=== PATIENT | female | born 1985 | race American Indian/Alaskan Native ===

== ENCOUNTER 2016-11-06 05:49 | Emergency (ER) | payer SELFPAY ==
[2016-11-06 06:06] VITALS: BP 108/79
[2016-11-06 06:55] LABS: Basophils % (Auto) 0.4 % (0.0-1.8); Eosinophils % (Auto) 3.8 % (0.0-4.3); Hematocrit 38.9 % (30.3-42.9); Hemoglobin 12.8 gm/dl (10.1-14.3); Mean Corpuscular HGB Conc 33 % (30-34); Mean Corpuscular Hemoglobin 31 pg (28-32); Mean Corpuscular Volume 94 fl (79-97); Platelet Count 257 K/mm3 (140-440); Red Blood Count 4.16 M/mm3 (3.65-5.03); White Blood Count 8.3 K/mm3 (4.5-11.0)
[2016-11-06 07:14] LABS: Bacteria,Urine 1+ /HPF (Negative); Bilirubin,Urine NEG (Negative); Blood,Urine NEG (Negative); Ketones,Urine NEG (Negative); Leukocyte Esterase,Urine SM (Negative); Mucus,Urine FEW /HPF; Nitrite,Urine NEG (Negative); Protein,Urine <15 mg/dL mg/dL (Negative); Urobilinogen,Urine < 2.0 mg/dL (<2.0)
[2016-11-06 07:19] LABS: Alanine Aminotransferase 11 units/L (7-56); Albumin 4.1 g/dL (3.9-5); Albumin/Globulin Ratio 1.6 %; Alkaline Phosphatase 76 units/L (35-129); Anion Gap 15 mmol/L; BUN/Creatinine Ratio 16.25; Bilirubin,Total 0.5 mg/dL (0.1-1.2); Blood Urea Nitrogen 13 mg/dL (7-17); Calcium 8.8 mg/dL (8.4-10.2); Carbon Dioxide 26 mmol/L (22-30); Chloride 98.1 mmol/L (98-107); Glucose 90 mg/dL (65-100); Lipase 26 units/L (13-60); Potassium 4.2 mmol/L (3.6-5.0); Sodium 135 mmol/L (137-145); Total Protein 6.7 g/dL (6.3-8.2)
== END 2016-11-06 06:43 | disposition left against medical advice (07) ==
LOC: ED 05:49
DX: R30.0 Dysuria (principal); R10.9 Unspecified abdominal pain; R30.9 Painful micturition, unspecified; Z53.21 Procedure and treatment not carried out due to patient leaving prior to being seen by health care provider
CPT/HCPCS: 36415; 80053; 81001; 81025; 83690; 85025

== ENCOUNTER 2017-01-21 15:19 | Emergency (ER) | payer MEDICAID | END 2017-01-21 15:20 | disposition left against medical advice (07) | LOC: ED 15:19 | DX: R10.9 Unspecified abdominal pain (principal); Z53.21 Procedure and treatment not carried out due to patient leaving prior to being seen by health care provider ==

== ENCOUNTER 2017-12-10 21:22 | Emergency (ER) | payer MEDICAID ==
[2017-12-10] MEDS ORDERED: PEPCID IV ONE (23:10)
[2017-12-10] MEDS ORDERED: DECADRON IV ONE (23:10)
[2017-12-10] MEDS ORDERED: BENADRYL IV ONE (23:10)
--- NOTE | 2017-12-10 23:15 | Emergency Department Report ---
ED Allergic Reaction HPI - General Chief complaint: Skin Rash Stated complaint: URTICARIA Time Seen by Provider: 12/10/17 23:09 Source: patient, family Mode of arrival: Ambulatory Limitations: No Limitations - History of Present Illness Initial Comments: 32-year-old [place] female presents to the emergency room for complaint of generalized itching for one week. Patient reports that she has several large red bumps that itch. Patient reports that she's been taking Benadryl for the last 2 days. She does admit to changing her soap detergent. She denies any new foods denies any new medications. She denies any shortness of breathing no chest pain no throat swelling or difficulty swallowing no abdominal pain. Patient reports no past medical history currently takes no medications and has no known drug allergies. MD Complaint: allergic reaction, hives -: week(s) (1) Exposure: unknown Symptoms: rash, itching. denies: facial swelling, lip swelling, difficulty swallowing, difficulty breathing, orolingual swelling, dizziness, nausea, vomiting, abdominal pain Severity: moderate Treatment Prior to Arrival: benadryl Previous Allergy History: none - Related Data Previous Rx's Medication Instructions Recorded Last Taken Type Sulfamethoxazole/Trimethoprim 1 each PO Q12H #20 tablet 09/17/15 Unknown Rx [Bactrim DS TAB] metroNIDAZOLE [Flagyl] 500 mg PO Q12HR #14 tab 09/17/15 Unknown Rx traMADol [Ultram 50 MG tab] 50 mg PO Q6HR PRN #20 tablet 09/17/15 Unknown Rx Allergies Allergy/AdvReac Type Severity Reaction Status Date / Time No Known Allergies Allergy Unverified 09/17/15 17:07 ED Review of Systems ROS: Stated complaint: URTICARIA Other details as noted in HPI Constitutional: denies: chills, fever Eyes: denies: eye pain, eye discharge, vision change ENT: denies: ear pain, throat pain Respiratory: denies: cough, shortness of breath, wheezing Cardiovascular: denies: chest pain, palpitations Endocrine: no symptoms reported Gastrointestinal: denies: abdominal pain, nausea, diarrhea Genitourinary: denies: urgency, dysuria, discharge Musculoskeletal: denies: back pain, joint swelling, arthralgia Skin: rash, pruritus. denies: lesions Neurological: denies: headache, weakness, paresthesias Psychiatric: denies: anxiety, depression Hematological/Lymphatic: denies: easy bleeding, easy bruising ED Past Medical Hx - Past Medical History Previous Medical History?: No - Surgical History Additional Surgical History: . D&C - Social History Smoking Status: Never Smoker Substance Use Type: None - Medications Home Medications: Home Medications Medication Instructions Recorded Confirmed Last Taken Type Sulfamethoxazole/Trimethoprim 1 each PO Q12H #20 tablet 09/17/15 Unknown Rx [Bactrim DS TAB] metroNIDAZOLE [Flagyl] 500 mg PO Q12HR #14 tab 09/17/15 Unknown Rx traMADol [Ultram 50 MG tab] 50 mg PO Q6HR PRN #20 tablet 09/17/15 Unknown Rx ED Physical Exam - General Limitations: No Limitations General appearance: alert, in no apparent distress - Head Head exam: Present: atraumatic, normocephalic - Eye Eye exam: Present: normal appearance - ENT ENT exam: Present: mucous membranes moist - Neurological Exam Neurological exam: Present: alert, oriented X3, normal gait - Psychiatric Psychiatric exam: Present: normal affect, normal mood - Skin Skin exam: Present: warm, dry, intact, normal color, rash, urticaria ED Course Vital Signs 12/10/17 12/11/17 22:31 03:09 Temperature 97.8 F Pulse Rate 75 73 Respiratory 18 18 Rate Blood Pressure 113/48 115/57 [Right] O2 Sat by Pulse 100 100 Oximetry - Reevaluation(s) Reevaluation #1: 12/11/17 03:21 Patient reports nurse that she feels much better now and has stopped. ED Medical Decision Making - Medical Decision Making Patient has been evaluated by this provider fast track. I discussed the patient we'll give her IV Benadryl and IV Pepcid and IV dexamethasone. Patient verbalized understanding. Critical care attestation.: If time is entered above; I have spent that time in minutes in the direct care of this critically ill patient, excluding procedure time. ED Disposition Clinical Impression: Allergic reaction, urticaria Disposition: DC-01 TO HOME OR SELFCARE Is pt being admited?: No Does the pt Need Aspirin: No Condition: Stable Instructions: Urticaria (ED) Additional Instructions: Please avoid offending agent. You can take Benadryl as needed for itching. Follow-up with her primary care provider. Referrals: DICRISTINA,DONY, MD [Primary Care Provider] - 3-5 Days [facility] [Provider Group] - 3-5 Days Forms: Work/School Release Form(ED)
[2017-12-11 03:10] VITALS: BP 115/57
== END 2017-12-11 03:47 | disposition home or self-care (01) ==
LOC: ED 21:22
DX: T78.40XA Allergy, unspecified, initial encounter (principal); Y92.89 Other specified places as the place of occurrence of the external cause; L50.9 Urticaria, unspecified
CPT/HCPCS: 96374; 96375; 99282; J1100; J1200

== ENCOUNTER 2017-12-17 20:21 | Emergency (ER) | payer MEDICAID ==
[2017-12-17 22:12] VITALS: BP 105/54
[2017-12-18] MEDS ORDERED: NACL 0.9% 1000 ML 1,000 ML IV ONE (01:53)
[2017-12-18] MEDS ORDERED: BENADRYL IV ONE (01:53)
[2017-12-18] MEDS ORDERED: PEPCID IV ONE (01:53)
== END 2017-12-18 04:50 | disposition other institution (70) ==
LOC: ED 20:21
DX: R21 Rash and other nonspecific skin eruption (principal); Z53.21 Procedure and treatment not carried out due to patient leaving prior to being seen by health care provider

== ENCOUNTER 2018-03-01 15:21 | Emergency (ER) | payer MEDICAID ==
[2018-03-01 15:49] VITALS: BP 108/72
--- NOTE | 2018-03-01 19:06 | Emergency Department Report ---
Upper Respiratory HPI - HPI Chief Complaint: Upper Respiratory Infection Stated Complaint: COLD SYMPTOMS Time Seen by Provider: 03/01/18 17:48 Duration: 3 Days URI Symptoms: Rhinorrhea: Yes, Sore Throat: No, Ear Pain: No, Cough: Yes, Shortness of Breath: No, Sick Contacts: No, Unable to Take Fluids: No, Urine Output Abnormal: No, Listless Behavior: No Other History: This is a 32-year-old female nontoxic, well nourished in appearance, no acute signs of distress presents to the ED with c/o of productive cough, rhinorrhea, nasal congestion x2 days. Patient describes productive cough as yellow mucus production. Patient stated sick contact with daugther. Patient denies any recent travels, long car, recent hospital stays. Patient denies any calf pain or calf tenderness. Patient denies any chest pain , short of breath, fever, chills, nausea, vomiting, hemoptysis, numbness, tingling, headache or stiff neck. Patient denies any allergies or PMH. - Home Meds and Allergies Home Medications: Previous Rx's Medication Instructions Recorded Last Taken Type Sulfamethoxazole/Trimethoprim 1 each PO Q12H #20 tablet 09/17/15 Unknown Rx [Bactrim DS TAB] metroNIDAZOLE [Flagyl] 500 mg PO Q12HR #14 tab 09/17/15 Unknown Rx traMADol [Ultram 50 MG tab] 50 mg PO Q6HR PRN #20 tablet 09/17/15 Unknown Rx Azithromycin [Zithromax Z-TERRI] 250 mg PO DAILY #6 tablet 03/01/18 Unknown Rx Benzonatate [Tessalon Perle] 100 mg PO Q8H PRN 20 Days capsule 03/01/18 Unknown Rx Prednisone [predniSONE 10 mg 10 mg PO .TAPER #1 tab.ds.pk 03/01/18 Unknown Rx (6-Day Pack, 21 Tabs)] Allergies/Adverse Reactions: Allergies Allergy/AdvReac Type Severity Reaction Status Date / Time No Known Allergies Allergy Unverified 09/17/15 17:07 ED Review of Systems ROS: Stated complaint: COLD SYMPTOMS Other details as noted in HPI Constitutional: denies: chills, fever Eyes: denies: eye pain, eye discharge, vision change ENT: denies: ear pain, throat pain Respiratory: cough. denies: shortness of breath, wheezing Cardiovascular: denies: chest pain, palpitations Endocrine: no symptoms reported Gastrointestinal: denies: abdominal pain, nausea, diarrhea Genitourinary: denies: urgency, dysuria, discharge Musculoskeletal: denies: back pain, joint swelling, arthralgia Skin: denies: rash, lesions Neurological: denies: headache, weakness, paresthesias Psychiatric: denies: anxiety, depression Hematological/Lymphatic: denies: easy bleeding, easy bruising ED Past Medical Hx - Past Medical History Previous Medical History?: Yes - Surgical History Past Surgical History?: Yes Additional Surgical History: c-sectionx3. D&C. x1, 11/26/2017 - Social History Smoking Status: Former Smoker Substance Use Type: Alcohol, Other - Medications Home Medications: Home Medications Medication Instructions Recorded Confirmed Last Taken Type Sulfamethoxazole/Trimethoprim 1 each PO Q12H #20 tablet 09/17/15 Unknown Rx [Bactrim DS TAB] metroNIDAZOLE [Flagyl] 500 mg PO Q12HR #14 tab 09/17/15 Unknown Rx traMADol [Ultram 50 MG tab] 50 mg PO Q6HR PRN #20 tablet 09/17/15 Unknown Rx Azithromycin [Zithromax Z-TERRI] 250 mg PO DAILY #6 tablet 03/01/18 Unknown Rx Benzonatate [Tessalon Perle] 100 mg PO Q8H PRN 20 Days capsule 03/01/18 Unknown Rx Prednisone [predniSONE 10 mg 10 mg PO .TAPER #1 tab.ds.pk 03/01/18 Unknown Rx (6-Day Pack, 21 Tabs)] ED Bronchiolitis Physical Exam - Exam General: Vital signs noted. No distress. Alert and acting appropriately. HEENT: No Pharyngeal Erythema, No Conjuctival Injection, No Dry Mucous Membranes , No Rhinorrhea Ear: Neither TM Bulge, Neither TM Erythema, Neither EAC Discharge Neck: No Adenopathy, No Rigidity Lungs: Yes Clear Lung Sounds, Yes Good Air Exchange, No Wheezes, No Stridor, No Cough, No Nasal Flaring, No Retractions, No Use of Accessory Muscles Heart: Yes Regular, No Murmur Abdomen: Yes Normal Bowel Sounds, No Tenderness, No Peritoneal Signs Skin: No Rash, No Eczema Neurologic: Alert and oriented, no deficits. Musculoskeletal: Unremarkable. ED Bronchiolitis Tests - Testing Testing: CXR: Normal/Negative ED Physical Exam - General Limitations: No Limitations General appearance: alert, in no apparent distress - Head Head exam: Present: atraumatic, normocephalic - Eye Eye exam: Present: normal appearance Pupils: Present: normal accommodation - ENT ENT exam: Present: normal exam, normal orophraynx, mucous membranes moist, TM's normal bilaterally, normal external ear exam - Neck Neck exam: Present: normal inspection, full ROM. Absent: tenderness, meningismus, lymphadenopathy - Respiratory Respiratory exam: Present: normal lung sounds bilaterally. Absent: respiratory distress, wheezes, rales, rhonchi, stridor, chest wall tenderness, accessory muscle use, decreased breath sounds, prolonged expiratory - Cardiovascular Cardiovascular Exam: Present: regular rate, normal rhythm, normal heart sounds. Absent: irregular rhythm, systolic murmur, diastolic murmur, rubs, gallop - GI/Abdominal GI/Abdominal exam: Present: soft, normal bowel sounds - Extremities Exam Extremities exam: Present: normal inspection, full ROM, normal capillary refill - Back Exam Back exam: Present: normal inspection, full ROM - Neurological Exam Neurological exam: Present: alert, oriented X3, normal gait - Psychiatric Psychiatric exam: Present: normal affect, normal mood - Skin Skin exam: Present: warm, dry, intact, normal color. Absent: rash ED Course Vital Signs 03/01/18 15:44 Temperature 98.6 F Pulse Rate 105 H Respiratory 20 Rate Blood Pressure 108/72 O2 Sat by Pulse 96 Oximetry - Reevaluation(s) Reevaluation #1: 03/01/18 19:03 Patient is speaking in full sentences with no signs of distress noted. ED Medical Decision Making - Medical Decision Making This is a 32-year-old female that presents with bronchitis. Patient is stable and was examined by me. Chest x-ray has been obtained and dictated by radiologist with normal exam. Patient is notified of x-ray results with no questions noted. Due to patient having symptoms of bronchitis and worsening I will treat patient empirically with zpak. Patient was instructed to increase hydration, rest and take Motrin for fever episodes. Vitals stable. Patient is nonfebrile and normal heart rate. Patient was instructed Follow-up with a primary care doctor in 3-5 days or if symptoms worsen and continue return to emergency room as soon as possible. At time time of discharge, the patient does not seem toxic or ill in appearance. No acute signs of distress noted. Patient agrees to discharge treatment plan of care. No further questions noted by the patient. Critical care attestation.: If time is entered above; I have spent that time in minutes in the direct care of this critically ill patient, excluding procedure time. ED Disposition Clinical Impression: Acute bronchitis Qualifiers: Bronchitis organism: unspecified organism Qualified Code(s): J20.9 - Acute bronchitis, unspecified Disposition: - TO HOME OR SELFCARE Is pt being admited?: No Does the pt Need Aspirin: No Condition: Stable Instructions: Acute Bronchitis (ED), Azithromycin (By mouth) Additional Instructions: Follow-up with a primary care doctor in 3-5 days or if symptoms worsen and continue return to emergency room as soon as possible. Prescriptions: Azithromycin [Zithromax Z-TERRI] 250 mg PO DAILY #6 tablet Benzonatate [Tessalon Perle] 100 mg PO Q8H PRN 20 Days capsule PRN Reason: Cough Prednisone [predniSONE 10 mg (6-Day Pack, 21 Tabs)] 10 mg PO .TAPER #1 tab.ds.pk Referrals: PRIMARY CAREMD [Primary Care Provider] - 3-5 Days STEPHANIE RUIZ MD [Staff Physician] - 3-[address] [facility] [Outside] - 3-5 Days [facility] [Outside] - 3-5 Days Forms: Work/School Release Form(ED)
--- NOTE | 2018-03-01 19:25 | XRay Report ---
FINAL REPORT PROCEDURE: XR CHEST ROUTINE 2V TECHNIQUE: PA and lateral chest radiographs were obtained. CPT 40900 HISTORY: Cough. COMPARISON: No prior studies are available for comparison. FINDINGS: Heart: Normal. Mediastinum/Vessels: Normal. Lungs/Pleural space: Normal. Bony thorax: No acute osseous abnormality. Other: IMPRESSION: No radiographic evidence of acute cardiopulmonary disease.
== END 2018-03-01 19:35 | disposition home or self-care (01) ==
LOC: ED 15:21
DX: J20.9 Acute bronchitis, unspecified (principal); Z87.891 Personal history of nicotine dependence
CPT/HCPCS: 71046; 99283

== ENCOUNTER 2018-07-14 18:49 | Emergency (ER) | payer MEDICAID ==
[2018-07-14 19:56] LABS: HCG Qualitative,Urine Negative (Negative)
[2018-07-14 20:00] LABS: Bilirubin,Urine NEG (Negative); Blood,Urine NEG (Negative); Color,Urine Straw (Yellow); Protein,Urine <15 mg/dL mg/dL (Negative); Urobilinogen,Urine < 2.0 mg/dL (<2.0)
--- NOTE | 2018-07-14 21:31 | Emergency Department Report ---
ED Female HPI - General Chief complaint: Urogenital-Female Stated complaint: POSS UTI Time Seen by Provider: 07/14/18 21:29 Source: patient Mode of arrival: Ambulatory Limitations: No Limitations - History of Present Illness Initial comments: This is a 33-year-old female nontoxic, well nourished in appearance, no acute signs of distress presents to the ED with c/o of vaginal discharge and pelvic pain. Patient denies any vaginal pain or swelling. Patient denies any vaginal ulcers or lesions. Patient denies any nausea, vomiting, chest pain, shortness of breathe, fever, chills, headache, back pain, numbness, tingling, stiff neck. Patient denies any radiation of pain. Patient describes vaginal discharge at white and thick with foul odor. Patient stated is she not concerned about STD but wants to be tested without empirical treatment. Patient denies any urinary symptoms. Patient denies any allergies or PMH. MD Complaint: vaginal discharge, pelvic pain Radiation: non-radiating Severity: mild Severity scale (0 -10): 3 Quality: cramping Consistency: constant Improves with: none Worsens with: none Are you Now?: No Associated Symptoms: vaginal discharge. denies: vaginal bleeding, abdominal pain, nausea/vomiting, fever/chills, headaches, loss of appetite, dysuria, hematuria, rash, seizure, shortness of breath, syncope, weakness - Related Data Previous Rx's Medication Instructions Recorded Last Taken Type Sulfamethoxazole/Trimethoprim 1 each PO Q12H #20 tablet 09/17/15 Unknown Rx [Bactrim DS TAB] metroNIDAZOLE [Flagyl] 500 mg PO Q12HR #14 tab 09/17/15 Unknown Rx traMADol [Ultram 50 MG tab] 50 mg PO Q6HR PRN #20 tablet 09/17/15 Unknown Rx Azithromycin [Zithromax Z-TERRI] 250 mg PO DAILY #6 tablet 03/01/18 Unknown Rx Benzonatate [Tessalon Perle] 100 mg PO Q8H PRN 20 Days capsule 03/01/18 Unknown Rx Prednisone [predniSONE 10 mg 10 mg PO .TAPER #1 tab.ds.pk 03/01/18 Unknown Rx (6-Day Pack, 21 Tabs)] metroNIDAZOLE [Flagyl] 500 mg PO Q12HR #14 tab 07/15/18 Unknown Rx Allergies Allergy/AdvReac Type Severity Reaction Status Date / Time No Known Allergies Allergy Verified 07/14/18 18:55 ED Review of Systems ROS: Stated complaint: POSS UTI Other details as noted in HPI Constitutional: denies: chills, fever Eyes: denies: eye pain, eye discharge, vision change ENT: denies: ear pain, throat pain Respiratory: denies: cough, shortness of breath, wheezing Cardiovascular: denies: chest pain, palpitations Endocrine: no symptoms reported Gastrointestinal: denies: abdominal pain, nausea, diarrhea Genitourinary: discharge. denies: urgency, dysuria Musculoskeletal: denies: back pain, joint swelling, arthralgia Skin: denies: rash, lesions Neurological: denies: headache, weakness, paresthesias Psychiatric: denies: anxiety, depression Hematological/Lymphatic: denies: easy bleeding, easy bruising ED Past Medical Hx - Past Medical History Previous Medical History?: No - Surgical History Additional Surgical History: c-sectionx3. D&C. x1, 11/26/2017 - Social History Smoking Status: Never Smoker Substance Use Type: None - Medications Home Medications: Home Medications Medication Instructions Recorded Confirmed Last Taken Type Sulfamethoxazole/Trimethoprim 1 each PO Q12H #20 tablet 09/17/15 Unknown Rx [Bactrim DS TAB] metroNIDAZOLE [Flagyl] 500 mg PO Q12HR #14 tab 09/17/15 Unknown Rx traMADol [Ultram 50 MG tab] 50 mg PO Q6HR PRN #20 tablet 09/17/15 Unknown Rx Azithromycin [Zithromax Z-TERRI] 250 mg PO DAILY #6 tablet 03/01/18 Unknown Rx Benzonatate [Tessalon Perle] 100 mg PO Q8H PRN 20 Days capsule 03/01/18 Unknown Rx Prednisone [predniSONE 10 mg 10 mg PO .TAPER #1 tab.ds.pk 03/01/18 Unknown Rx (6-Day Pack, 21 Tabs)] metroNIDAZOLE [Flagyl] 500 mg PO Q12HR #14 tab 07/15/18 Unknown Rx ED Physical Exam - General Limitations: No Limitations General appearance: alert, in no apparent distress - Head Head exam: Present: atraumatic, normocephalic - Eye Eye exam: Present: normal appearance Pupils: Present: normal accommodation - ENT ENT exam: Present: normal exam, mucous membranes moist - Neck Neck exam: Present: normal inspection, full ROM. Absent: tenderness, meningismus, lymphadenopathy - Respiratory Respiratory exam: Present: normal lung sounds bilaterally. Absent: respiratory distress, wheezes, rales - Cardiovascular Cardiovascular Exam: Present: regular rate, normal rhythm, normal heart sounds. Absent: bradycardia, tachycardia, irregular rhythm, systolic murmur, diastolic murmur, rubs, gallop - GI/Abdominal GI/Abdominal exam: Present: soft, normal bowel sounds. Absent: distended, tenderness, guarding, rebound, rigid, diminished bowel sounds - Expanded GI/Abdominal Exam Expanded GI/Abdominal exam: Absent: psoas sign, Banks's sign, Rovsing's sign, tenderness at [place]bur[place]'s Point, ascites - Rectal Rectal exam: Present: deferred - External exam: Present: normal external exam, other (anchorer Mommy Nearest present on exam). Absent: erythema, swelling, lesions, lacerations, ecchymosis , bleeding Speculum exam: Present: cervical discharge, other (anchorer Mommy Nearest present on exam). Absent: erythema, vaginal discharge, vaginal bleeding, foreign body, tissue, laceration Bi-manual exam: Present: normal bi-manual exam, other (anchorer Mommy Nearest present on exam). Absent: cervical motion tendernes, adnexal tenderness, adnexal mass, uterine enlargement, uterine tenderness - Extremities Exam Extremities exam: Present: normal inspection, full ROM - Back Exam Back exam: Present: normal inspection, full ROM. Absent: tenderness, CVA tenderness (R), CVA tenderness (L), muscle spasm, paraspinal tenderness, vertebral tenderness, rash noted - Neurological Exam Neurological exam: Present: alert, oriented X3 - Psychiatric Psychiatric exam: Present: normal affect, normal mood - Skin Skin exam: Present: warm, dry, intact, normal color. Absent: rash ED Course Vital Signs 07/14/18 07/14/18 18:55 23:23 Temperature 98.5 F 97.8 F Pulse Rate 70 66 Respiratory 18 16 Rate Blood Pressure 122/64 Blood Pressure 143/90 [Left] O2 Sat by Pulse 100 98 Oximetry - Reevaluation(s) Reevaluation #1: 07/14/18 23:33 Patient is speaking in full sentences with no signs of distress noted. ED Medical Decision Making - Lab Data Result diagrams: 07/14/18 21:42 07/14/18 21:42 - Medical Decision Making This is a 33-year-old female that presents with pelvic pain and vaginal discharge. Patient is stable was examined by me. There is no abdominal tenderness. No pelvic pain. UA obtained. Wet prep obtained with some clue cells. Gonorrhea chlamydia swab pending. Patient refused empirical treatment of STD as she stated she is not concerned about STD but does want to be. Patient was instructed to return in 2 days for GC results. Patient was instructed to Follow-up with a primary care doctor in 3-5 days or if symptoms worsen and continue return to emergency room as soon as possible. At time of discharge, the patient does not seem toxic or ill in appearance. No acute signs of distress noted. Patient agrees to discharge treatment plan of care. No further questions noted by the patient. Critical care attestation.: If time is entered above; I have spent that time in minutes in the direct care of this critically ill patient, excluding procedure time. ED Disposition Clinical Impression: Pelvic pain, Vaginal discharge, BV (bacterial vaginosis) Disposition: - TO HOME OR SELFCARE Is pt being admited?: No Does the pt Need Aspirin: No Condition: Stable Instructions: Bacterial Vaginosis (ED), Metronidazole (By mouth) Additional Instructions: Follow-up with a primary care/[facility] doctor in 3-5 days or if symptoms worsen and continue return to emergency room as soon as possible. Prescriptions: metroNIDAZOLE [Flagyl] 500 mg PO Q12HR #14 tab Referrals: PRIMARY CAREMD [Primary Care Provider] - 3-5 Days STEPHANIE RUIZ MD [Staff Physician] - 3-5 Days PASTOR KEARNEY MD [Staff Physician] - 3-5 Days Forms: Work/School Release Form(ED)
[2018-07-14 21:54] LABS: Basophils % (Auto) 0.4 % (0.0-1.8); Eosinophils # (Auto) 0.6 K/mm3 (0.0-0.4); Eosinophils % (Auto) 6.7 % (0.0-4.3); Hematocrit 34.8 % (30.3-42.9); Hemoglobin 11.6 gm/dl (10.1-14.3); Lymphocytes # (Auto) 3.3 K/mm3 (1.2-5.4); Lymphocytes % (Auto) 34.5 % (13.4-35.0); Mean Corpuscular HGB Conc 33 % (30-34); Mean Corpuscular Hemoglobin 32 pg (28-32); Mean Corpuscular Volume 95 fl (79-97); Monocytes # (Auto) 0.5 K/mm3 (0.0-0.8); Monocytes % (Auto) 4.8 % (0.0-7.3); Platelet Count 316 K/mm3 (140-440); Red Blood Count 3.68 M/mm3 (3.65-5.03); Red Cell Distribution Width 14.2 % (13.2-15.2)
[2018-07-14 22:07] LABS: BUN/Creatinine Ratio 15; Blood Urea Nitrogen 15 mg/dL (7-17); Calcium 9.5 mg/dL (8.4-10.2); Hemolysis Index 10
--- NOTE | 2018-07-14 23:18 | Ultrasound Report ---
FINAL REPORT EXAM: US TRANSVAGINAL HISTORY: pelvic pain TECHNIQUE: Transvaginal grayscale, color flow and Doppler waveform imaging of the pelvis was performed. Comparison: Transabdominal ultrasound also performed today and ultrasound pelvis dated November 18, 2014 FINDINGS: The uterus measures 8.3 centimeters x 3.5 centimeters x 5.7 centimeters. An intrauterine device is demonstrated in the uterus. Endometrial thickness measures 3.6 millimeters. The right ovary measures 2.3 centimeters x 2.8 centimeters x 2.4 centimeters. There is an approximately 1.8 centimeter dominant follicle in the right ovary. The left ovary measures 2.8 centimeters x 2.2 centimeters x 2.1 centimeters. There is an approximately 1 centimeter dominant follicle in the left ovary. Arterial and venous flow is demonstrated in both ovaries utilizing color flow and Doppler waveform imaging. No free fluid is demonstrated in the pelvis. IMPRESSION: 1. Ultrasound pelvis within normal limits. 2. Intrauterine device is demonstrated in the uterus.
--- NOTE | 2018-07-14 23:21 | Ultrasound Report ---
FINAL REPORT EXAM: US PELVIS DUPLEX DOPPLER COMP HISTORY: pelvic pain TECHNIQUE: Transabdominal grayscale, color flow and Doppler waveform imaging of the pelvis was performed. Comparison: Transvaginal ultrasound also performed today FINDINGS: The uterus measures 8.3 centimeters x 3.5 centimeters x 5.7 centimeters. An intrauterine device is demonstrated within the uterus. The right ovary measures 3 centimeters x 2.1 centimeters x 2.2 centimeters and contains an approximately 2 centimeter dominant follicle. The left ovary measures 3.1 centimeters x 2 centimeters x 2 centimeters and contains an approximately 2.4 centimeter dominant follicle. Arterial and venous flow is demonstrated in both ovaries utilizing color flow Doppler waveform imaging. No free fluid is demonstrated in the pelvis. IMPRESSION: 1. Ultrasound pelvis within normal limits. 2. Intrauterine device within the uterus. Please see report of transvaginal study also performed today.
[2018-07-14 23:23] VITALS: BP 143/90
== END 2018-07-15 00:29 | disposition home or self-care (01) ==
LOC: ED 18:49
DX: N76.0 Acute vaginitis (principal); R10.2 Pelvic and perineal pain
CPT/HCPCS: 36415; 76830; 80048; 81001; 81025; 85025; 87210; 87591; 93975; 99284

== ENCOUNTER 2018-10-09 10:43 | Inpatient (IN) | payer MEDICAID, OTHER ==
[2018-10-09 11:22] LABS: Bilirubin,Urine NEG (Negative); Blood,Urine NEG (Negative); Color,Urine Yellow (Yellow); Protein,Urine <15 mg/dL mg/dL (Negative); Urobilinogen,Urine < 2.0 mg/dL (<2.0)
[2018-10-09 11:28] LABS: HCG Qualitative,Urine Negative (Negative)
[2018-10-09] MEDS ORDERED: NORCO 5/325 PO ONE (11:28)
[2018-10-09] MEDS ORDERED: IBUPROFEN PO ONE (11:28)
--- NOTE | 2018-10-09 11:33 | Emergency Department Report ---
HPI - General Chief Complaint: Urogenital-Female Time Seen by Provider: 10/09/18 11:21 - HPI HPI: Room 7 The patient is a 33-year-old female presenting with a chief complaint of left flank pain and right wrist pain. The patient states since yesterday she has had pain in the left flank only when she moves 2 days. Patient denies nausea/vomiting, dysuria or hematuria. Patient denies vaginal discharge. Patient states her LMP was early August but 2 days ago she had light spotting for one day. Patient states she has an IUD in place. The patient also states she's had pain in her right wrist for 1 month after lifting a heavy object Location: Left flank Duration: [See above] Quality: Pain Severity: Moderate Modifying factors: [see above] Context: [see above] Mode of transportation: [not driving] ED Past Medical Hx - Past Medical History Previous Medical History?: No - Surgical History Past Surgical History?: No Additional Surgical History: c-sectionx3. D&C. x1, 11/26/2017 - Family History Family history: no significant - Social History Smoking Status: Never Smoker Substance Use Type: None - Medications Home Medications: Home Medications Medication Instructions Recorded Confirmed Last Taken Type Sulfamethoxazole/Trimethoprim 1 each PO Q12H #20 tablet 09/17/15 Unknown Rx [Bactrim DS TAB] metroNIDAZOLE [Flagyl] 500 mg PO Q12HR #14 tab 09/17/15 Unknown Rx traMADol [Ultram 50 MG tab] 50 mg PO Q6HR PRN #20 tablet 09/17/15 Unknown Rx Azithromycin [Zithromax Z-TERRI] 250 mg PO DAILY #6 tablet 03/01/18 Unknown Rx Benzonatate [Tessalon Perle] 100 mg PO Q8H PRN 20 Days capsule 03/01/18 Unknown Rx Prednisone [predniSONE 10 mg 10 mg PO .TAPER #1 tab.ds.pk 03/01/18 Unknown Rx (6-Day Pack, 21 Tabs)] metroNIDAZOLE [Flagyl] 500 mg PO Q12HR #14 tab 07/15/18 Unknown Rx ED Review of Systems ROS: Stated complaint: FLANK PAIN/RIGHT WRIST PAIN Other details as noted in HPI Constitutional: no symptoms reported Eyes: denies: eye pain ENT: as per HPI Respiratory: no symptoms reported Cardiovascular: denies: chest pain Endocrine: no symptoms reported Gastrointestinal: abdominal pain. denies: nausea, vomiting Genitourinary: abnormal menses. denies: dysuria, hematuria, discharge Musculoskeletal: back pain Neurological: denies: headache Physical Exam - Physical Exam Vital Signs: Vital Signs 10/09/18 10:50 Temperature 98.2 F Pulse Rate 71 Respiratory 16 Rate Blood Pressure 112/77 O2 Sat by Pulse 98 Oximetry Physical Exam: GENERAL: The patient is well-developed well-nourished female lying on stretcher not appearing to be in acute distress. [] HEENT: Normocephalic. Atraumatic. Extraocular motions are intact. Patient has moist mucous membranes. NECK: Supple. Trachea midline CHEST/LUNGS: Clear to auscultation. There is no respiratory distress noted. HEART/CARDIOVASCULAR: Regular. There is no tachycardia. There is no gallop rub or murmur. ABDOMEN: Abdomen is soft, with mild discomfort to palpation left lower quadrant and left upper quadrant. Patient has normal bowel sounds. There is no abdominal distention. SKIN: There is no rash. There is no edema. There is no diaphoresis. NEURO: The patient is awake, alert, and oriented. The patient is cooperative. The patient has normal speech MUSCULOSKELETAL: There is left CVA tenderness. There is no evidence of acute i njury. ED Course Vital Signs 10/09/18 10:50 Temperature 98.2 F Pulse Rate 71 Respiratory 16 Rate Blood Pressure 112/77 O2 Sat by Pulse 98 Oximetry - Consultations Consultation #1: 10/09/18 15:27 Nephrology paged 10/09/18 15:[address] Jack-recommends patient be admitted to the hospital for further evaluation. Consider MRA to rule out renal artery stenosis ED Medical Decision Making - Lab Data Result diagrams: 10/09/18 11:58 10/09/18 11:58 Laboratory Tests 10/09/18 10/09/18 10/09/18 11:02 11:58 11:58 WBC 5.9 RBC 4.19 Hgb 13.3 Hct 39.7 MCV 95 MCH 32 MCHC 34 RDW 14.0 Plt Count 277 Lymph % (Auto) 39.6 H [place] % (Auto) 5.9 Eos % (Auto) 10.2 H Baso % (Auto) 0.5 Lymph # 2.3 [place] # 0.4 Eos # 0.6 H Baso # 0.0 Seg Neutrophils % 43.8 Seg Neutrophils # 2.6 Sodium 137 Potassium 4.2 Chloride 101.5 Carbon Dioxide 24 Anion Gap 16 BUN 14 Creatinine 0.9 Estimated GFR > 60 BUN/Creatinine Ratio 16 Glucose 94 Calcium 8.9 Total Bilirubin 0.40 AST 18 ALT 11 Alkaline Phosphatase 64 Total Protein 7.1 Albumin 4.1 Albumin/Globulin Ratio 1.4 Urine Color Yellow Urine Turbidity Clear Urine pH 7.0 Ur Specific [place] 1.015 Urine Protein <15 mg/dl Urine Glucose (UA) Neg Urine Ketones Neg Urine Blood Neg Urine Nitrite Neg Urine Bilirubin Neg Urine Urobilinogen < 2.0 Ur Leukocyte Esterase Neg Urine WBC (Auto) 7.0 H Urine RBC (Auto) 1.0 U Epithel Cells (Auto) < 1.0 Urine HCG, Qual Negative - Radiology Data Radiology results: report reviewed (right wrist x-ray, CT abdomen and pelvis), image reviewed (right wrist x-ray, CT abdomen and pelvis) interpreted by me: Right wrist x-ray-no acute fracture [address] [address] XRay Report Signed Patient: PK SEGAL MR#: [id number] : 1985 Acct:[id number] Age/Sex: 33 / F ADM Date: 10/09/18 Loc: ED Attending Dr: Ordering Physician: YULISA MONTANO MD Date of Service: 10/09/18 Procedure(s): XR wrist 3+V RT Accession Number(s): [id number] cc: YULISA MONTANO MD Fluoro Time In Minutes: FINAL REPORT EXAM: XR WRIST 2V RT HISTORY: pain after lifting heavy object TECHNIQUE: Three views of the right wrist PRIORS: None. FINDINGS: There is no evidence of acute fracture. There is no evidence of joint dislocation. There is no significant focal osseous lesions seen. IMPRESSION: There is no acute abnormality identified. Transcribed By: DARRYL Dictated By: PASTOR ZAVALA MD Electronically Authenticated By: PASTOR ZAVALA MD Signed Date/Time: 10/09/18 1310 DD/ 131 TD/TT: 10/09/[address] [address] Cat Scan Report Signed Patient: PK SEGAL MR#: [id number] : 1985 Acct:[id number] Age/Sex: 33 / F ADM Date: 10/09/18 Loc: ED Attending Dr: Ordering Physician: YULISA MONTANO MD Date of Service: 10/09/18 Procedure(s): CT abdomen pelvis wo/w con Accession Number(s): [id number] cc: YUILSA MONTANO MD FINAL REPORT EXAM: CT ABDOMEN PELVIS WO/W CON HISTORY: left flank pain TECHNIQUE: CT of the abdomen and pelvis performed. Images were obtained before and after IV contrast. No oral contrast was administered. PRIORS: None. FINDINGS: There are no renal stones, ureteral stones, hydronephrosis, or evidence of obstructive uropathy. There is a small right renal cyst. The left kidney is scarred and mildly atrophic. There is a upper medial peripheral area of diminished enhancement involving the left kidney. I am not certain whether this represents focal pyelonephritis or a small renal infarct. Correlate clinically. The visualized liver, spleen, pancreas, adrenal glands and right kidney demonstrate no significant abnormalities. There is no abdominal aortic aneurysm. There is no evidence of intestinal obstruction. The appendix is not specifically identified. There is no free intraperitoneal air. There are no abnormal fluid collections seen. The bladder is unremarkable. There is an IUD in the uterus. There is no abnormal pelvic mass or fluid collections seen. IMPRESSION: Focal peripheral area of diminished enhancement involving upper medial left kidney. This could be focal pyelonephritis versus is a renal infarct. Correlate clinically. Transcribed By: DARRYL Dictated By: PASTOR ZAVALA MD Electronically Authenticated By: PASTOR ZAVALA MD Signed Date/Time: 10/09/18 1522 DD/ 1524 TD/TT: 10/09/18 1524 - Differential Diagnosis pyelonephritis, ectopic , ovarian cyst, Critical care attestation.: If time is entered above; I have spent that time in minutes in the direct care of this critically ill patient, excluding procedure time. ED Disposition Clinical Impression: Left flank pain, Strain of right wrist, Pyuria Disposition: OP ADMIT IP TO THIS HOSP Is pt being admited?: Yes Does the pt Need Aspirin: Yes Condition: Fair Referrals: PRIMARY CARE, [Primary Care Provider] - 3-5 Days Time of Disposition: 15:57 (hospitalist paged (Dr Andres))
[2018-10-09 12:22] LABS: Basophils % (Auto) 0.5 % (0.0-1.8); Eosinophils # (Auto) 0.6 K/mm3 (0.0-0.4); Eosinophils % (Auto) 10.2 % (0.0-4.3); Hematocrit 39.7 % (30.3-42.9); Hemoglobin 13.3 gm/dl (10.1-14.3); Lymphocytes # (Auto) 2.3 K/mm3 (1.2-5.4); Lymphocytes % (Auto) 39.6 % (13.4-35.0); Mean Corpuscular HGB Conc 34 % (30-34); Mean Corpuscular Volume 95 fl (79-97); Monocytes # (Auto) 0.4 K/mm3 (0.0-0.8); Monocytes % (Auto) 5.9 % (0.0-7.3); Platelet Count 277 K/mm3 (140-440); Red Blood Count 4.19 M/mm3 (3.65-5.03)
[2018-10-09 12:47] LABS: Alanine Aminotransferase 11 units/L (7-56); Albumin 4.1 g/dL (3.9-5); BUN/Creatinine Ratio 16; Blood Urea Nitrogen 14 mg/dL (7-17); Calcium 8.9 mg/dL (8.4-10.2); Hemolysis Index 17
--- NOTE | 2018-10-09 13:10 | XRay Report ---
FINAL REPORT EXAM: XR WRIST 2V RT HISTORY: pain after lifting heavy object TECHNIQUE: Three views of the right wrist PRIORS: None. FINDINGS: There is no evidence of acute fracture. There is no evidence of joint dislocation. There is no significant focal osseous lesions seen. IMPRESSION: There is no acute abnormality identified.
--- NOTE | 2018-10-09 15:22 | Cat Scan Report ---
FINAL REPORT EXAM: CT ABDOMEN PELVIS WO/W CON HISTORY: left flank pain TECHNIQUE: CT of the abdomen and pelvis performed. Images were obtained before and after IV contrast . No oral contrast was administered. PRIORS: None. FINDINGS: There are no renal stones, ureteral stones, hydronephrosis, or evidence of obstructive uropathy. There is a small right renal cyst. The left kidney is scarred and mildly atrophic. There is a upper m edial peripheral area of diminished enhancement involving the left kidney. I am not certain whether t his represents focal pyelonephritis or a small renal infarct. Correlate clinically. The visualized liver, spleen, pancreas, adrenal glands and right kidney demonstrate no significant ab normalities. There is no abdominal aortic aneurysm. There is no evidence of intestinal obstruction. The appendix is not specifically identified. There is no free intraperitoneal air. There are no abnormal fluid collections seen. The bladder is unremarkable. There is an IUD in the uterus. There is no abnormal pelvic mass or fluid collections seen. IMPRESSION: Focal peripheral area of diminished enhancement involving upper medial left kidney. This could be foc al pyelonephritis versus is a renal infarct. Correlate clinically.
[2018-10-09] MEDS ORDERED: LEVAQUIN PO ONE (15:55)
--- NOTE | 2018-10-09 16:00 | History and Physical Report ---
History of Present Illness History of present illness: 33 YO Female with no PMH presents to ED for evaluation. Pt states that she has experienced Left flank pain over the past 2 days with worsening symptoms over the past 1 day. Pt acknowledges recurrent urinary tract infections, but denies fever, chills, NVD, dysuria, hematuria, vaginal discharge, trauma, productive cough, skin rash or recent ill contacts. Past History Past Medical History: No medical history (reviewed) Past Surgical History: Social history: , lives with family. denies: smoking, alcohol abuse, prescription drug abuse Family history: no significant family history (reviewed) Medications and Allergies Allergies Allergy/AdvReac Type Severity Reaction Status Date / Time No Known Allergies Allergy Verified 07/14/18 18:55 Home Medications Medication Instructions Recorded Confirmed Last Taken Type Sulfamethoxazole/Trimethoprim 1 each PO Q12H #20 tablet 09/17/15 Unknown Rx [Bactrim DS TAB] metroNIDAZOLE [Flagyl] 500 mg PO Q12HR #14 tab 09/17/15 Unknown Rx traMADol [Ultram 50 MG tab] 50 mg PO Q6HR PRN #20 tablet 09/17/15 Unknown Rx Azithromycin [Zithromax Z-TERRI] 250 mg PO DAILY #6 tablet 03/01/18 Unknown Rx Benzonatate [Tessalon Perle] 100 mg PO Q8H PRN 20 Days capsule 03/01/18 Unknown Rx Prednisone [predniSONE 10 mg 10 mg PO .TAPER #1 tab.ds.pk 03/01/18 Unknown Rx (6-Day Pack, 21 Tabs)] metroNIDAZOLE [Flagyl] 500 mg PO Q12HR #14 tab 07/15/18 Unknown Rx Review of Systems Constitutional: no weight loss, no weight gain, no fever, no chills Ears, nose, mouth and throat: no ear pain, no ear discharge, no tinnitis, no decreased hearing, no nose pain, no nasal congestion, no nasal discharge Breasts: no change in shape, no swelling, no mass Cardiovascular: no chest pain, no orthopnea, no palpitations, no rapid/irregular heart beat, no edema, no syncope Respiratory: no cough, no excessive sputum, no hemoptysis, no shortness of breath, no dyspnea on exertion Gastrointestinal: no abdominal pain, no nausea, no vomiting, no diarrhea, no change in bowel habits Genitourinary Female: flank pain, no dyspareunia, no dysmenorrhea, no pelvic pain, no dysuria, no urinary frequency, no urgency Rectal: no pain, no incontinence, no bleeding Musculoskeletal: no neck stiffness, no neck pain, no shooting arm pain, no arm numbness/tingling, no low back pain, no shooting leg pain, no leg numbness/tingling Integumentary: no rash, no pruritis, no redness, no sores, no wounds Neurological: no paralysis, no weakness, no numbness, no tingling, no seizures, no syncope, no tremors Psychiatric: no anxiety, no memory loss, no change in sleep habits, no sleep disturbances, no insomnia, no hypersomnia, no change in appetite, no change in libido, no suicidal ideation, no disorientation, no hallucinations Endocrine: no cold intolerance, no heat intolerance, no polyphagia, no excessive thirst, no polydipsia, no polyuria Hematologic/Lymphatic: no easy bruising, no easy bleeding, no lymphadenopathy, no lymphedema Allergic/Immunologic: no urticaria, no persistent infections, no anaphylaxis, no angioedema Exam - Constitutional Vitals: Temp Pulse Resp BP Pulse Ox 98.2 F 71 18 112/77 98 10/09/18 10:50 10/09/18 10:50 10/09/18 10:54 10/09/18 10:50 10/09/18 10:54 General appearance: Present: mild distress - EENT Eyes: Present: PERRL ENT: hearing intact, clear oral mucosa - Neck Neck: Present: supple, normal ROM - Respiratory Respiratory effort: normal Respiratory: bilateral: CTA - Cardiovascular Heart Sounds: Present: S1 & S2. Absent: rub, click - Extremities Extremities: pulses symmetrical, No edema Peripheral Pulses: within normal limits - Abdominal General gastrointestinal: Present: soft, non-tender, non-distended, normal bowel sounds Female genitourinary: Present: normal - Integumentary Integumentary: Present: clear, warm, dry - Musculoskeletal Musculoskeletal: gait normal, strength equal bilaterally - Psychiatric Psychiatric: appropriate mood/affect, intact judgment & insight - Neurologic Neurologic: CNII-XII intact, moves all extremities Results - Labs CBC & Chem 7: 10/09/18 11:58 10/09/18 11:58 Labs: Abnormal lab results 10/09/18 10/09/18 Range/Units 11:02 11:58 Lymph % (Auto) 39.6 H (13.4-35.0) % Eos % (Auto) 10.2 H (0.0-4.3) % Eos # 0.6 H (0.0-0.4) K/mm3 Urine WBC (Auto) 7.0 H (0.0-6.0) /HPF Assessment and Plan - Patient Problems (1) Pyelonephritis Current Visit: Yes Status: Acute Plan to address problem: IV antibiotic therapy, urinalysis, CT abdomen pelvis, nephrology consulted, supportive care, renal ultrasound, (2) Renal infarct Current Visit: Yes Status: Suspected Plan to address problem: CT Abdomen pelvis, D dimer, hypercoagulable profile, BLE duplex (3) DVT prophylaxis Current Visit: Yes Status: Acute Plan to address problem: SCD to ble while in bed.
[2018-10-09] MEDS ORDERED: SODIUM CHLORIDE FLUSH SYRINGE 10 ML IV PRN (16:07)
[2018-10-09] MEDS ORDERED: TYLENOL PO PRN (16:07)
[2018-10-09] MEDS: PERCOCET 5/325 PO PRN (23:24)
[2018-10-09] MEDS: PEPCID PO SCH (23:24)
[2018-10-09] MEDS: SODIUM CHLORIDE FLUSH SYRINGE 10 ML IV SCH (23:24)
[2018-10-09] MEDS: ZOFRAN IV PRN (23:30)
--- NOTE | 2018-10-10 09:27 | Consultation ---
History of Present Illness - Reason for Consult Consult date: 10/10/18 other (L renal infarction ) Requesting physician: LUIS HDEZ - History of Present Illness This is a 33 yo AA F with no PMH who presents to ED with complaints of severe Left flank pain which started 2 days ago acutely when she woke up with pain. since then pt experienced worsening symptoms and presented to the ER. In ER CT A/P with IV contrast was obtained, which showed focal peripheral area of diminished enhancement involving upper medial left kidney, which could be focal pyelonephritis vs renal infarct. Renal consult is requested for further management/w/u of possible renal infarct. Labs showed normal renal function, no leukocytosis seen and UA showed only 7WBC/HPF, otherwise UA was bland. test was negative. D-dimer was WNL. Pt denies personal and family history of thromboembolic disease, pt has IUD placed about 2 months ago, however never took contraceptive pills. Pt acknowledges recurrent urinary tract infections, but denies fever, chills, NVD, dysuria, hematuria, vaginal discharge, trauma, productive cough, skin rash or recent ill contacts. Past History Past Medical History: No medical history (reviewed) Past Surgical History: Social history: , lives with family. denies: smoking, alcohol abuse, prescription drug abuse Family history: no significant family history (reviewed) Medications and Allergies Allergies Allergy/AdvReac Type Severity Reaction Status Date / Time No Known Allergies Allergy Verified 07/14/18 18:55 Home Medications Medication Instructions Recorded Confirmed Last Taken Type Sulfamethoxazole/Trimethoprim 1 each PO Q12H #20 tablet 09/17/15 Unknown Rx [Bactrim DS TAB] metroNIDAZOLE [Flagyl] 500 mg PO Q12HR #14 tab 09/17/15 Unknown Rx traMADol [Ultram 50 MG tab] 50 mg PO Q6HR PRN #20 tablet 09/17/15 Unknown Rx Azithromycin [Zithromax Z-TERRI] 250 mg PO DAILY #6 tablet 03/01/18 Unknown Rx Benzonatate [Tessalon Perle] 100 mg PO Q8H PRN 20 Days capsule 03/01/18 Unknown Rx Prednisone [predniSONE 10 mg 10 mg PO .TAPER #1 tab.ds.pk 03/01/18 Unknown Rx (6-Day Pack, 21 Tabs)] metroNIDAZOLE [Flagyl] 500 mg PO Q12HR #14 tab 07/15/18 Unknown Rx Active Meds: Active Medications Acetaminophen (Tylenol) 650 mg PO Q4H PRN PRN Reason: Pain MILD(1-3)/Fever >100.5/FONTANEZ Famotidine (Pepcid) 20 mg PO BID [facility] Last Admin: 10/09/18 23:24 Dose: 20 mg Documented by: Levofloxacin/Dextrose (Levaquin 500mg/100ml) 500 mg in 100 mls @ 100 mls/hr IV Q24HR [facility]; Protocol Ondansetron HCl (Zofran) 4 mg IV Q8H PRN PRN Reason: Nausea And Vomiting Last Admin: 10/09/18 23:30 Dose: 4 mg Documented by: Oxycodone/Acetaminophen (Percocet 5/325) 1 tab PO Q6H PRN PRN Reason: Pain, Moderate (4-6) Last Admin: 10/09/18 23:24 Dose: 1 tab Documented by: Sodium Chloride (Sodium Chloride Flush Syringe 10 Ml) 10 ml IV BID [facility] Last Admin: 10/09/18 23:24 Dose: 10 ml Documented by: Sodium Chloride (Sodium Chloride Flush Syringe 10 Ml) 10 ml IV PRN PRN PRN Reason: LINE FLUSH Review of Systems All systems: negative Constitutional: weakness, other (Left flank pain ) Exam - Vital Signs Vital signs: Vital Signs Temp Pulse Resp BP Pulse Ox 98.2 F 71 16 112/77 98 10/09/18 10:50 10/09/18 10:50 10/09/18 10:50 10/09/18 10:50 10/09/18 10:50 - General Appearance General appearance: well-developed, well-nourished, appears stated age EENT: ATNC, PERRL, mucous membranes moist Neck: Present: neck supple Respiratory: Clear to Ascultation Heart: regular, S1S2 Gastrointestinal: Present: normoactive bowel sounds Integumentary: no rash, other (no edema ) Neurologic: no focal deficit, alert and oriented x3, strength 5/5, CN 3-12 intact Psychiatric: mood/affect appropriate, cooperative Results - Lab Results 10/09/18 11:58 10/09/18 11:58 Most recent lab results Calcium 8.9 mg/dL (8.4-10.2) 10/09/18 11:58 Laboratory Tests 10/09/18 10/09/18 11:02 16:08 D-Dimer 211.07 Urine Color Yellow Urine Turbidity Clear Urine pH 7.0 Ur Specific [place] 1.015 Urine Protein <15 mg/dl Urine Glucose (UA) Neg Urine Ketones Neg Urine Blood Neg Urine Nitrite Neg Urine Bilirubin Neg Urine Urobilinogen < 2.0 Ur Leukocyte Esterase Neg Urine WBC (Auto) 7.0 H Urine RBC (Auto) 1.0 U Epithel Cells (Auto) < 1.0 Urine HCG, Qual Negative Assessment and Plan - Patient Problems (1) Left flank pain Current Visit: Yes Status: Acute Plan to address problem: pyelonephritis vs L renal infarct. UCx pending. started on empiric ABXs with levaquin. ordered CTA a/p to rule out renal artery abnormalities incl. fibromucscular dysplasia (2) Pyelonephritis Current Visit: Yes Status: Acute Plan to address problem: started on levaquin (3) Renal infarct Current Visit: Yes Status: Suspected Plan to address problem: no history/risk factors for thromboembolic disease identified. ordered CTA a/p to rule out renal artery abnormalities incl. fibromucscular dysplasia.
[2018-10-10] MEDS: LEVAQUIN 500MG/100ML 500 MG/100 ML BAG IV SCH (09:56)
[2018-10-10] MEDS: PEPCID PO SCH ×2 (09:57→22:47)
[2018-10-10] MEDS: SODIUM CHLORIDE FLUSH SYRINGE 10 ML IV SCH ×2 (09:57→22:47)
[2018-10-10] MEDS: ZOFRAN IV PRN (14:18)
--- NOTE | 2018-10-10 14:55 | Progress Note ---
Assessment and Plan / Pyelonephritis IV antibiotic therapy, Iv fluid, supportive care, renal ultrasound, no urine cx obtained on admission / Renal infarct ?? suspected on CT Abdomen pelvis, will order CTA abdomen to confirm diagnosis / DVT prophylaxis SCD to b/l LE while in bed. Radiological data; CT abdomen/pelvis: Focal peripheral area of diminished enhancement involving upper medial left kidney. This could be focal pyelonephritis versus is a renal infarct. Subjective Date of service: 10/10/18 Interval history: Pt seen and examined Abdominal pain improved, tolerating diet No N/v Objective - Constitutional Vitals: Vital Signs - 12hr 10/10/18 10/10/18 06:03 09:04 Temperature 97.7 F Pulse Rate 77 Respiratory 18 Rate Blood Pressure 103/66 O2 Sat by Pulse 100 99 Oximetry General appearance: Present: no acute distress, well-nourished - EENT Eyes: PERRL, EOM intact ENT: hearing intact, clear oral mucosa Ears: bilateral: normal - Neck Neck: supple, normal ROM - Respiratory Respiratory effort: normal Respiratory: bilateral: CTA - Cardiovascular Rhythm: regular Heart Sounds: Present: S1 & S2. Absent: gallop, rub Extremities: pulses intact, No edema, normal color, Full ROM - Gastrointestinal General gastrointestinal: Present: soft, non-tender, non-distended, normal bowel sounds - Integumentary Integumentary: clear, warm, dry - Musculoskeletal Musculoskeletal: 1, strength equal bilaterally - Neurologic Neurologic: moves all extremities - Psychiatric Psychiatric: memory intact, appropriate mood/affect, intact judgment & insight - Labs CBC & Chem 7: 10/09/18 11:58 10/11/18 05:15
--- NOTE | 2018-10-10 19:07 | Vascular Lab Report ---
FINAL REPORT EXAM: VL VENOUS DUPLEX LE BILAT HISTORY: pain COMPARISON: None available. TECHNIQUE: Several real time [place] scale and color Doppler images of the deep venous structures were obtained. FINDINGS: Normal color flow and compressibility of the deep venous structures. Visualized deep calf veins are a lso patent. IMPRESSION: No acute DVT.
--- NOTE | 2018-10-10 19:11 | Ultrasound Report ---
FINAL REPORT EXAM: US RENAL BILAT HISTORY: pain COMPARISON: CT abdomen pelvis October 09, 2018. TECHNIQUE: Several real-time grayscale and color Doppler images were obtained. FINDINGS: Right kidney measures 11.7 x 4.7 x 6.0 centimeters. Cortex 1.0 centimeters. Mid right renal cyst harsha uring 1.4 x 1.3 x 1.7 centimeters. Left kidney is small in size measuring 8.7 x 3.6 x 3.8 centimeters . Cortex 1.5 centimeters. No hydronephrosis. Punctate nonobstructive renal calculi could be obscured by renal sinus fat. There is vascular flow to the bilateral kidneys. Visualize urinary bladder is grossly unremarkable. IMPRESSION: Single benign right renal cyst measuring 1.7 centimeters. Stable atrophy of the left kidney. No hydro nephrosis bilaterally.
[2018-10-11 05:58] LABS: BUN/Creatinine Ratio 14; Blood Urea Nitrogen 14 mg/dL (7-17); Calcium 8.8 mg/dL (8.4-10.2)
[2018-10-11 05:59] LABS: Hemolysis Index 14
--- NOTE | 2018-10-11 07:40 | Progress Note ---
Assessment and Plan - Patient Problems (1) Left flank pain Current Visit: Yes Status: Acute Plan to address problem: Seems to be associated with urination. Possible pyelonephritis. On empiric antibiotics. Urine cx pending. Rule out renal infarct with CT Angio abdomen/renal arteries. (2) Pyelonephritis Current Visit: Yes Status: Acute Plan to address problem: Continue current antibiotic regimen with levaquin. Urine Cx pending. (3) Renal infarct Current Visit: Yes Status: Suspected Plan to address problem: Plan for CT Angio Abdomen/renal arteries for further delineation. Subjective Date of service: 10/11/18 Interval history: No acute events overnight. C/O mild left flank pain with urination. No hematuria noted. On levaquin. Plan for CT Angiogram abdomne/renal arteries today for further delineation. Objective - Vital Signs Vital signs: Vital Signs - 12hr 10/10/18 10/11/18 10/11/18 22:00 00:31 06:26 Temperature 97.9 F 98.2 F Pulse Rate 74 55 L Respiratory 16 16 16 Rate Blood Pressure 111/75 90/51 O2 Sat by Pulse 96 100 Oximetry - General Appearance General appearance: well-developed, well-nourished, appears stated age EENT: ATNC, PERRL, mucous membranes moist Neck: no JVD, no thyromegaly Respiratory: Present: Clear to Ascultation Cardiology: regular, normal heart rate, S1S2, no murmurs Gastrointestinal: normal, normoactive bowel sounds Integumentary: no rash, warm and dry Neurologic: no focal deficit, no asterixis, alert and oriented x3 Musculoskeletal: deferred Psychiatric: mood/affect appropriate, cooperative - Lab 10/09/18 11:58 10/11/18 05:15 Most recent lab results Calcium 8.8 mg/dL (8.4-10.2) 10/11/18 05:15 - Allied health notes Allied health notes reviewed: nursing Medications & Allergies - Medications Allergies/Adverse Reactions: Allergies No Known Allergies Allergy (Verified 07/14/18 18:55) Home Medications: Home Medications Medication Instructions Recorded Confirmed Last Taken Type Sulfamethoxazole/Trimethoprim 1 each PO Q12H #20 tablet 09/17/15 Unknown Rx [Bactrim DS TAB] metroNIDAZOLE [Flagyl] 500 mg PO Q12HR #14 tab 12/21/15 Unknown Rx traMADol [Ultram 50 MG tab] 50 mg PO Q6HR PRN #20 tablet 09/17/15 Unknown Rx Azithromycin [Zithromax Z-TERRI] 250 mg PO DAILY #6 tablet 03/01/18 Unknown Rx Benzonatate [Tessalon Perle] 100 mg PO Q8H PRN 20 Days capsule 03/01/18 U nknown Rx Prednisone [predniSONE 10 mg 10 mg PO .TAPER #1 tab.ds.pk 03/01/18 Unknown Rx (6-Day Pack, 21 Tabs)] metroNIDAZOLE [Flagyl] 500 mg PO Q12HR #14 tab 07/15/18 Unknown Rx Active Medications: Generic Name Dose Route Start Last Admin Trade Name Freq PRN Reason Stop Dose Admin Acetaminophen 650 mg 10/09/18 16:07 Tylenol PO Q4H PRN Pain MILD(1-3)/Fever >100.5/FONTANEZ Famotidine 20 mg 10/09/18 22:00 10/10/18 22:47 Pepcid PO 20 mg BID TANESHA Administration Levofloxacin/Dextrose 500 mg in 100 mls @ 100 mls/hr 10/10/18 10:00 10/10/18 09:56 Levaquin 500mg/100ml IV 100 mls/hr Q24HR TANESHA Administration Protocol Ondansetron HCl 4 mg 10/09/18 16:07 10/10/18 14:18 Zofran IV 4 mg Q8H PRN Administration Nausea And Vomiting Oxycodone/Acetaminophen 1 tab 10/09/18 21:29 10/09/18 23:24 Percocet 5/325 PO 1 tab Q6H PRN Administration Pain, Moderate (4-6) Sodium Chloride 10 ml 10/09/18 22:00 10/10/18 22:47 Sodium Chloride Flush Syringe 10 Ml IV 10 ml BID TANESHA Administration Sodium Chloride 10 ml 10/09/18 16:07 Sodium Chloride Flush Syringe 10 Ml IV PRN PRN LINE FLUSH
[2018-10-11] MEDS: SODIUM CHLORIDE FLUSH SYRINGE 10 ML IV SCH (09:56)
[2018-10-11] MEDS: LEVAQUIN 500MG/100ML 500 MG/100 ML BAG IV SCH (09:56)
[2018-10-11] MEDS: PEPCID PO SCH (09:56)
--- NOTE | 2018-10-11 10:09 | Cat Scan Report ---
CT ANGIOGRAM ABDOMEN AND PELVIS HISTORY: Left renal infarction. TECHNIQUE: Helical CT was performed in a 1.25 mm intervals following IV contrast. Sagittal and coronal reformatted images. Rotational MIP images. FINDINGS: There is adequate opacification of the arterial structures. The visualized aorta, celiac axis, SMA, EDUARDO, bilateral single renal arteries and bilateral iliac systems are widely patent with less than 20% stenosis. No evidence for atherosclerotic disease, aneurysm or dissection. The renal arteries are symmetric and widely patent. No evidence for stenosis or fibromuscular changes. There is moderate multifocal cortical scarring in the left kidney. The right kidney is unremarkable. A 4.5 cm hypodensity is identified in the left hepatic lobe which appears to represent a hemangioma. The remaining visceral structures are unremarkable. An IUD is in position. IMPRESSION: Normal exam.
[2018-10-11] MEDS: PERCOCET 5/325 PO PRN (10:30)
--- NOTE | 2018-10-11 12:17 | Discharge Summary ---
Providers - Providers Date of Admission: 10/09/18 16:07 Date of discharge: 10/11/18 Attending physician: BECKA GRANDE 10/09/18 15:52 Consult to Physician [CONS] Urgent Comment: DR QUISPE NOTIFIED 1550 Consulting Provider: JOSÉ QUISPE Physician Instructions: Reason For Exam: left flank pain, possible renal infarct Primary care physician: EVIDENCE CUSTODIAN Hospitalization Condition: Fair Pertinent studies: Radiological data; CT abdomen/pelvis: Focal peripheral area of diminished enhancement involving upper medial left kidney. This could be focal pyelonephritis versus is a renal infarct. CTA abdomen/pelvis: no abnormality Renal US: Single benign right renal cyst measuring 1.7 centimeters. Stable atrophy of the left kidney. No hydronephrosis bilaterally. Hospital course: This is a 33 yo AAF with no PMH who presented to ED with complaints of severe Left flank pain for [address] A/P with IV contrast was obtained, which showed focal peripheral area of diminished enhancement involving upper medial left kidney, which could be focal pyelonephritis vs renal infarct. She was placed on abx, CTA abdomen obtained which ruled out renal infract. Her symptom improved, abdominal pain resolved, tolerating diet. Patient was then discharged home in stable condition. Discharge diagnosis and management: /Abdominal pain, resolved, likely from UTI / Pyelonephritis Treated with IV antibiotic therapy, Iv fluid, supportive care, no urine cx obtained on admission / Renal infarct ?? - ruled out suspected on CT Abdomen pelvis, ordered CTA abdomen to confirm diagnosis- no infract seen / DVT prophylaxis SCD to b/l LE while in bed. Disposition: DC-01 TO HOME OR SELFCARE Time spent for discharge: 34 minutes Core Measure Documentation - Palliative Care Palliative Care/ Comfort Measures: Not Applicable - Core Measures Any of the following diagnoses?: none Exam - Constitutional Vitals: Temp Pulse Resp BP Pulse Ox 98.2 F 55 L 20 90/51 100 10/11/18 06:26 10/11/18 06:26 10/11/18 10:30 10/11/18 06:26 10/11/18 08:04 General appearance: Present: no acute distress, well-nourished - EENT Eyes: Present: PERRL ENT: hearing intact, clear oral mucosa - Neck Neck: Present: supple, normal ROM - Respiratory Respiratory effort: normal Respiratory: bilateral: CTA - Cardiovascular Heart Sounds: Present: S1 & S2. Absent: rub, click - Extremities Extremities: pulses symmetrical, No edema Peripheral Pulses: within normal limits - Abdominal General gastrointestinal: Present: soft, non-tender, non-distended, normal bowel sounds - Integumentary Integumentary: Present: clear, warm, dry - Musculoskeletal Musculoskeletal: gait normal, strength equal bilaterally - Psychiatric Psychiatric: appropriate mood/affect, intact judgment & insight - Neurologic Neurologic: CNII-XII intact, moves all extremities Plan Activity: advance as tolerated Weight Bearing Status: Weight Bear as Tolerated Diet: regular Follow up with: PRIMARY CARE, [Primary Care Provider] - 3-5 Days Prescriptions: Ciprofloxacin HCl [Ciprofloxacin TAB] 500 mg PO Q12HR #6 tab
[2018-10-11 14:03] VITALS: BP 84/44
[2018-10-27 07:31] LABS: Antithrombin III Antigen SEE SCANNED RESULT; Cardiolipin Ab IgA SEE SCANNED RESULT; Cardiolipin Ab IgG SEE SCANNED RESULT; Cardiolipin Ab IgM SEE SCANNED RESULT; Interpretation HYPERCOAG PROF SEE SCANNED RESULT; Protein C Antigen SEE SCANNED RESULT; Protein S, Free SEE SCANNED RESULT; Protein S, Total SEE SCANNED RESULT
== END 2018-10-11 12:45 | disposition home or self-care (01) | DRG 690 ==
LOC: ED 10:43 → 3A 16:07
PROVIDERS: ADMIT Internal Medicine; ATTEND Internal Medicine
DX: N10 Acute pyelonephritis (principal); S66.911A Strain of unspecified muscle, fascia and tendon at wrist and hand level, right hand, initial encounter; X58.XXXA Exposure to other specified factors, initial encounter; Y93.89 Activity, other specified; Y92.89 Other specified places as the place of occurrence of the external cause; Y99.8 Other external cause status
CPT/HCPCS: 36415; 74174; 74178; 76770; 80048; 80053; 81001; 81025; 83516; 85025; 85301; 85305; 85307; 85379; 85613; 86147; 87086; 93970; G0378; J1956; J2405; Q9967

== ENCOUNTER 2018-12-01 07:49 | Emergency (ER) | payer MEDICAID, OTHER ==
[2018-12-01 08:18] VITALS: BP 109/65
--- NOTE | 2018-12-01 09:07 | Emergency Department Report ---
ED Abdominal Pain HPI - General Chief Complaint: Abdominal Pain Stated Complaint: ABD PAIN Time Seen by Provider: 12/01/18 08:56 Source: patient Mode of arrival: Ambulatory Limitations: No Limitations - History of Present Illness Initial Comments: Adrian is a 33 yo female with hx of ovarian cyst who presents with intermittent LLQ pain for the past month. Dull, mild pain worse with intercourse or if she holds her urine. No fever. No vaginal discharge. No n/v/d. No change with movement. MD Complaint: abdominal pain -: Gradual, month(s) (1) Location: LLQ Radiation: none Severity: mild Severity scale (0 -10): 4 Quality: dull Consistency: intermittent Associated Symptoms: denies other symptoms - Related Data Previous Rx's Medication Instructions Recorded Last Taken Type Sulfamethoxazole/Trimethoprim 1 each PO Q12H #20 tablet 09/17/15 Unknown Rx [Bactrim DS TAB] metroNIDAZOLE [Flagyl] 500 mg PO Q12HR #14 tab 09/17/15 Unknown Rx traMADol [Ultram 50 MG tab] 50 mg PO Q6HR PRN #20 tablet 09/17/15 Unknown Rx Azithromycin [Zithromax Z-TERRI] 250 mg PO DAILY #6 tablet 03/01/18 Unknown Rx Benzonatate [Tessalon Perle] 100 mg PO Q8H PRN 20 Days capsule 03/01/18 Unknown Rx Prednisone [predniSONE 10 mg 10 mg PO .TAPER #1 tab.ds.pk 03/01/18 Unknown Rx (6-Day Pack, 21 Tabs)] metroNIDAZOLE [Flagyl] 500 mg PO Q12HR #14 tab 07/15/18 Unknown Rx Ciprofloxacin HCl [Ciprofloxacin 500 mg PO Q12HR #6 tab 10/11/18 Unknown Rx TAB] Ibuprofen 800 mg PO QID PRN #15 tablet 12/01/18 Unknown Rx Allergies Allergy/AdvReac Type Severity Reaction Status Date / Time No Known Allergies Allergy Verified 07/14/18 18:55 ED Review of Systems ROS: Stated complaint: ABD PAIN Other details as noted in HPI Comment: All other systems reviewed and negative Constitutional: denies: fever, malaise Respiratory: denies: cough Cardiovascular: denies: chest pain ED Past Medical Hx - Past Medical History Previous Medical History?: No - Surgical History Past Surgical History?: Yes Additional Surgical History: c-sectionx3. D&C. x1, 11/26/2017 - Social History Smoking Status: Never Smoker Substance Use Type: None - Medications Home Medications: Home Medications Medication Instructions Recorded Confirmed Last Taken Type Sulfamethoxazole/Trimethoprim 1 each PO Q12H #20 tablet 09/17/15 Unknown Rx [Bactrim DS TAB] metroNIDAZOLE [Flagyl] 500 mg PO Q12HR #14 tab 09/17/15 Unknown Rx traMADol [Ultram 50 MG tab] 50 mg PO Q6HR PRN #20 tablet 09/17/15 Unknown Rx Azithromycin [Zithromax Z-TERRI] 250 mg PO DAILY #6 tablet 03/01/18 Unknown Rx Benzonatate [Tessalon Perle] 100 mg PO Q8H PRN 20 Days capsule 03/01/18 Unknown Rx Prednisone [predniSONE 10 mg 10 mg PO .TAPER #1 tab.ds.pk 03/01/18 Unknown Rx (6-Day Pack, 21 Tabs)] metroNIDAZOLE [Flagyl] 500 mg PO Q12HR #14 tab 07/15/18 Unknown Rx Ciprofloxacin HCl [Ciprofloxacin 500 mg PO Q12HR #6 tab 10/11/18 Unknown Rx TAB] Ibuprofen 800 mg PO QID PRN #15 tablet 12/01/18 Unknown Rx ED Physical Exam - General Limitations: No Limitations General appearance: alert, in no apparent distress, other (appears comfortable laying on stretcher legs crossed at ankle) - Head Head exam: Present: atraumatic, normocephalic - Eye Eye exam: Present: normal appearance - ENT ENT exam: Present: mucous membranes moist - Neck Neck exam: Present: normal inspection. Absent: tenderness, meningismus - Respiratory Respiratory exam: Present: normal lung sounds bilaterally. Absent: respiratory distress, wheezes, rales, rhonchi - Cardiovascular Cardiovascular Exam: Present: regular rate, normal rhythm, normal heart sounds. Absent: systolic murmur, diastolic murmur, rubs, gallop - GI/Abdominal GI/Abdominal exam: Present: soft, normal bowel sounds. Absent: distended, tenderness, guarding, rebound - Extremities Exam Extremities exam: Present: normal inspection - Back Exam Back exam: Present: normal inspection - Neurological Exam Neurological exam: Present: alert, oriented X3 - Psychiatric Psychiatric exam: Present: normal affect, normal mood - Skin Skin exam: Present: warm, dry, intact, normal color. Absent: rash ED Course Vital Signs 12/01/18 08:13 Temperature 97.7 F Pulse Rate 63 Respiratory 18 Rate Blood Pressure 109/65 O2 Sat by Pulse 100 Oximetry ED Medical Decision Making - Medical Decision Making Mrs. Bro presents with left lower quadrant abdominal pain for one month: Differential diagnosis includes ovarian cyst, PID, endometriosis, , UTI, discomfort associated with IUD Urinalysis negative for UTI, urine test is negative. Recommended outpatient evaluation by postdoctoral scientist. She was referred to outpatient clinic. Prescribed ibuprofen Critical care attestation.: If time is entered above; I have spent that time in minutes in the direct care of this critically ill patient, excluding procedure time. ED Disposition Clinical Impression: LLQ pain Disposition: - TO HOME OR SELFCARE Is pt being admited?: No Does the pt Need Aspirin: No Condition: Stable Instructions: Abdominal Pain (ED) Prescriptions: Ibuprofen 800 mg PO QID PRN #15 tablet PRN Reason: Pain , Severe (7-10) Referrals: BRISTOW MA[facility]UTCH [place] MD HARI [Primary Care Provider] - 3-5 Days ZOIE KEARNEY MD [Staff Physician] - 3-5 Days Forms: Work/School Release Form(ED)
[2018-12-01 09:29] LABS: Bilirubin,Urine NEG (Negative); Blood,Urine NEG (Negative); Color,Urine Yellow (Yellow); Mucus,Urine FEW /HPF; Protein,Urine <15 mg/dL mg/dL (Negative); Urobilinogen,Urine < 2.0 mg/dL (<2.0)
[2018-12-01 09:37] LABS: HCG Qualitative,Urine Negative (Negative)
== END 2018-12-01 09:50 | disposition home or self-care (01) ==
LOC: ED 07:49
DX: R10.32 Left lower quadrant pain (principal)
CPT/HCPCS: 81001; 81025; 99283

== ENCOUNTER 2019-04-13 20:05 | Emergency (ER) | payer MEDICAID ==
--- NOTE | 2019-04-13 20:56 | Event Note ---
ED Screening Note ED Screening Note: VAGINAL DC 1 PARTNER UNPROTECTED NO PAIN LMP 2 W AGO This initial assessment/diagnostic orders/clinical plan/treatment(s) is/are subject to change based on patients health status, clinical progression and re- assessment by fellow clinical providers in the ED. Further treatment and workup at subsequent clinical providers discretion. Patient/guardian urged not to elope from the ED as their condition may be serious if not clinically assessed and managed. Initial orders include: UA WET PREP
[2019-04-13 21:32] LABS: Bilirubin,Urine NEG (Negative); Blood,Urine NEG (Negative); Color,Urine Straw (Yellow); Mucus,Urine FEW /HPF; Protein,Urine <15 mg/dL mg/dL (Negative); Urobilinogen,Urine < 2.0 mg/dL (<2.0); WBC,Urine < 1.0 /HPF (0.0-6.0)
[2019-04-13 21:37] LABS: HCG Qualitative,Urine Negative (Negative)
--- NOTE | 2019-04-13 23:46 | Emergency Department Report ---
ED Female HPI - General Chief complaint: Urogenital-Female Stated complaint: DISCHARGE Time Seen by Provider: 04/13/19 20:55 Source: patient Mode of arrival: Ambulatory Limitations: No Limitations - History of Present Illness Initial comments: pt is a 34 y/o aaf who presents for vaginal discharge clear white fishy odor x 1 week, pt denies fever no chills no n/v back pain , pt denies other symptoms same [facility] no concerns for STI. Complaint: vaginal discharge Onset/Timin -: week(s) Radiation: non-radiating Severity: moderate Severity scale (0 -10): 3 Quality: other (itching ) Consistency: constant Improves with: none Worsens with: none Are you Now?: No Last Menstrual Period: 03/28/19 EDC: 01/02/20 Associated Symptoms: vaginal discharge. denies: vaginal bleeding, abdominal pain, nausea/vomiting, dysuria - Related Data Sexually active: Yes Previous Rx's Medication Instructions Recorded Last Taken Type Sulfamethoxazole/Trimethoprim 1 each PO Q12H #20 tablet 09/17/15 Unknown Rx [Bactrim DS TAB] metroNIDAZOLE [Flagyl] 500 mg PO Q12HR #14 tab 09/17/15 Unknown Rx traMADol [Ultram 50 MG tab] 50 mg PO Q6HR PRN #20 tablet 09/17/15 Unknown Rx Azithromycin [Zithromax Z-TERRI] 250 mg PO DAILY #6 tablet 03/01/18 Unknown Rx Benzonatate [Tessalon Perle] 100 mg PO Q8H PRN 20 Days capsule 03/01/18 Unknown Rx Prednisone [predniSONE 10 mg 10 mg PO .TAPER #1 tab.ds.pk 03/01/18 Unknown Rx (6-Day Pack, 21 Tabs)] metroNIDAZOLE [Flagyl] 500 mg PO Q12HR #14 tab 07/15/18 Unknown Rx Ciprofloxacin HCl [Ciprofloxacin 500 mg PO Q12HR #6 tab 10/11/18 Unknown Rx TAB] Ibuprofen 800 mg PO QID PRN #15 tablet 12/01/18 Unknown Rx metroNIDAZOLE [Flagyl] 500 mg PO Q12HR 10 Days #20 tab 04/13/19 Unknown Rx Allergies Allergy/AdvReac Type Severity Reaction Status Date / Time No Known Allergies Allergy Verified 07/14/18 18:55 ED Review of Systems ROS: Stated complaint: DISCHARGE Other details as noted in HPI Constitutional: denies: chills, fever Eyes: denies: eye pain, eye discharge, vision change ENT: denies: ear pain, throat pain Respiratory: denies: cough, shortness of breath, wheezing Cardiovascular: denies: chest pain, palpitations Endocrine: no symptoms reported Gastrointestinal: denies: abdominal pain, nausea, diarrhea Genitourinary: discharge. denies: urgency, dysuria, frequency, hematuria, abnormal menses, dyspareunia Musculoskeletal: denies: back pain, joint swelling, arthralgia Skin: denies: rash, lesions Neurological: denies: headache, weakness, paresthesias Psychiatric: denies: anxiety, depression Hematological/Lymphatic: denies: easy bleeding, easy bruising ED Past Medical Hx - Past Medical History Previous Medical History?: No - Surgical History Past Surgical History?: Yes Additional Surgical History: c-sectionx3. D&C. x1, 11/26/2017 - Social History Smoking Status: Never Smoker Substance Use Type: None - Medications Home Medications: Home Medications Medication Instructions Recorded Confirmed Last Taken Type Sulfamethoxazole/Trimethoprim 1 each PO Q12H #20 tablet 09/17/15 Unknown Rx [Bactrim DS TAB] metroNIDAZOLE [Flagyl] 500 mg PO Q12HR #14 tab 09/17/15 Unknown Rx traMADol [Ultram 50 MG tab] 50 mg PO Q6HR PRN #20 tablet 09/17/15 Unknown Rx Azithromycin [Zithromax Z-TERRI] 250 mg PO DAILY #6 tablet 03/01/18 Unknown Rx Benzonatate [Tessalon Perle] 100 mg PO Q8H PRN 20 Days capsule 03/01/18 Unknown Rx Prednisone [predniSONE 10 mg 10 mg PO .TAPER #1 tab.ds.pk 03/01/18 Unknown Rx (6-Day Pack, 21 Tabs)] metroNIDAZOLE [Flagyl] 500 mg PO Q12HR #14 tab 07/15/18 Unknown Rx Ciprofloxacin HCl [Ciprofloxacin 500 mg PO Q12HR #6 tab 10/11/18 Unknown Rx TAB] Ibuprofen 800 mg PO QID PRN #15 tablet 12/01/18 Unknown Rx metroNIDAZOLE [Flagyl] 500 mg PO Q12HR 10 Days #20 tab 04/13/19 Unknown Rx ED Physical Exam - General Limitations: No Limitations General appearance: alert, in no apparent distress - Head Head exam: Present: atraumatic, normocephalic - Eye Eye exam: Present: normal appearance, PERRL, EOMI Pupils: Present: normal accommodation - ENT ENT exam: Present: mucous membranes moist, TM's normal bilaterally - Neck Neck exam: Present: normal inspection - Respiratory Respiratory exam: Present: normal lung sounds bilaterally. Absent: respiratory distress, wheezes, stridor, chest wall tenderness - Cardiovascular Cardiovascular Exam: Present: regular rate, normal rhythm, normal heart sounds. Absent: systolic murmur, diastolic murmur, rubs, gallop - GI/Abdominal GI/Abdominal exam: Present: soft, normal bowel sounds. Absent: distended, tenderness, guarding, rebound, rigid, bruit, hernia - Rectal Rectal exam: Present: deferred - External exam: Present: normal external exam. Absent: erythema, lesions Speculum exam: Present: erythema, vaginal discharge (white malodorous ). Absent: cervical discharge, vaginal bleeding, foreign body, tissue, laceration Bi-manual exam: Absent: cervical motion tendernes - Extremities Exam Extremities exam: Present: normal inspection, full ROM. Absent: tenderness - Back Exam Back exam: Present: normal inspection, full ROM. Absent: tenderness, CVA tenderness (R), CVA tenderness (L), muscle spasm, paraspinal tenderness, vertebral tenderness, rash noted - Neurological Exam Neurological exam: Present: alert, oriented X3, CN II-XII intact, normal gait, reflexes normal. Absent: motor sensory deficit - Psychiatric Psychiatric exam: Present: normal affect, normal mood - Skin Skin exam: Present: warm, dry, intact, normal color. Absent: rash ED Course Vital Signs 04/13/19 20:54 Temperature 98 F Pulse Rate 75 Respiratory 18 Rate Blood Pressure 116/63 O2 Sat by Pulse 100 Oximetry ED Medical Decision Making - Lab Data Labs 04/13/19 21:10 Urine Color Straw Urine Turbidity Clear Urine pH 6.0 Ur Specific [place] 1.008 Urine Protein <15 mg/dl Urine Glucose (UA) Neg Urine Ketones 20 Urine Blood Neg Urine Nitrite Neg Urine Bilirubin Neg Urine Urobilinogen < 2.0 Ur Leukocyte Esterase Neg Urine WBC (Auto) < 1.0 Urine RBC (Auto) 1.0 Urine Mucus Few Urine HCG, Qual Negative - Medical Decision Making Wet prep pos for Clue cells plan tx for BV ,GC/Chl cultures pending will notify pt if cultures are positive, pt will follow up in 2-3 days for same, pt verbalized agreement and understanding of discharge plan. Critical care attestation.: If time is entered above; I have spent that time in minutes in the direct care of this critically ill patient, excluding procedure time. ED Disposition Clinical Impression: Bacterial vaginosis Disposition: - TO HOME OR SELFCARE Is pt being admited?: No Does the pt Need Aspirin: No Condition: Stable Instructions: Bacterial Vaginosis (ED) Prescriptions: metroNIDAZOLE [Flagyl] 500 mg PO Q12HR 10 Days #20 tab Referrals: ZOIE KEARNEY MD [Staff Physician] - 3-5 Days Forms: STI Treatment and Prevention Time of Disposition: 23:49
[2019-04-14 00:11] VITALS: BP 114/78
== END 2019-04-14 | disposition home or self-care (01) ==
LOC: ED 20:05
DX: N76.0 Acute vaginitis (principal); B96.89 Other specified bacterial agents as the cause of diseases classified elsewhere; Z79.899 Other long term (current) drug therapy
CPT/HCPCS: 81001; 81025; 87210

== ENCOUNTER 2019-05-01 19:02 | Emergency (ER) | payer MEDICAID ==
[2019-05-01 19:34] VITALS: BP 101/74
--- NOTE | 2019-05-01 19:35 | Event Note ---
ED Screening Note Date of service: 05/01/19 Time: 19:32 ED Screening Note: This is a 34 y.o. F. that presents to the ER with pelvic pain on left side x 3 days. Reports urinary frequency and urgency. LMP 03/30/2019 Denies dysuria, vaginal discharge, hematuria, and back pain. Occasional marijuana use. This initial assessment/diagnostic orders/clinical plan/treatment(s) is/are subject to change based on patients health status, clinical progression and re- assessment by fellow clinical providers in the ED. Further treatment and workup at subsequent clinical providers discretion. Patient/guardian urged not to elope from the ED as their condition may be serious if not clinically assessed and managed. Initial orders include: Labs
[2019-05-01 21:06] LABS: Bilirubin,Urine NEG (Negative); Blood,Urine NEG (Negative); Color,Urine Yellow (Yellow); Mucus,Urine FEW /HPF; Protein,Urine <15 mg/dL mg/dL (Negative); Urobilinogen,Urine < 2.0 mg/dL (<2.0); WBC,Urine < 1.0 /HPF (0.0-6.0)
--- NOTE | 2019-05-01 21:23 | Emergency Department Report ---
ED Female HPI - General Chief complaint: Abdominal Pain Stated complaint: L OVARY PAIN Time Seen by Provider: 05/01/19 19:32 Source: patient Mode of arrival: Ambulatory Limitations: No Limitations - History of Present Illness Initial comments: Patient is a 34-year-old female presents to the emergency room with complaints of pain to her left lower abdomen that began 3 days ago. She states she has having "ovary pain." She has a past medical history of ovarian cyst. She denies any nausea, vomiting, fever, dysuria, vaginal bleeding. The patient s tates she also has urinary frequency. pt does not report vaginal discharge or vaginal complaints. 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 Denies any allergies to medications. - Related Data Previous Rx's Medication Instructions Recorded Last Taken Type Sulfamethoxazole/Trimethoprim 1 each PO Q12H #20 tablet 09/17/15 Unknown Rx [Bactrim DS TAB] metroNIDAZOLE [Flagyl] 500 mg PO Q12HR #14 tab 09/17/15 Unknown Rx traMADol [Ultram 50 MG tab] 50 mg PO Q6HR PRN #20 tablet 09/17/15 Unknown Rx Azithromycin [Zithromax Z-TERRI] 250 mg PO DAILY #6 tablet 03/01/18 Unknown Rx Benzonatate [Tessalon Perle] 100 mg PO Q8H PRN 20 Days capsule 03/01/18 Unknown Rx Prednisone [predniSONE 10 mg 10 mg PO .TAPER #1 tab.ds.pk 03/01/18 Unknown Rx (6-Day Pack, 21 Tabs)] metroNIDAZOLE [Flagyl] 500 mg PO Q12HR #14 tab 07/15/18 Unknown Rx Ciprofloxacin HCl [Ciprofloxacin 500 mg PO Q12HR #6 tab 10/11/18 Unknown Rx TAB] Ibuprofen 800 mg PO QID PRN #15 tablet 12/01/18 Unknown Rx metroNIDAZOLE [Flagyl] 500 mg PO Q12HR 10 Days #20 tab 04/13/19 Unknown Rx Allergies Allergy/AdvReac Type Severity Reaction Status Date / Time No Known Allergies Allergy Verified 07/14/18 18:55 ED Review of Systems ROS: Stated complaint: L OVARY PAIN Other details as noted in HPI Comment: All other systems reviewed and negative ED Past Medical Hx - Past Medical History Previous Medical History?: No - Surgical History Past Surgical History?: No Additional Surgical History: c-sectionx3. D&C. x1, 11/26/2017 - Social History Smoking Status: Never Smoker Substance Use Type: Marijuana - Medications Home Medications: Home Medications Medication Instructions Recorded Confirmed Last Taken Type Sulfamethoxazole/Trimethoprim 1 each PO Q12H #20 tablet 09/17/15 Unknown Rx [Bactrim DS TAB] metroNIDAZOLE [Flagyl] 500 mg PO Q12HR #14 tab 09/17/15 Unknown Rx traMADol [Ultram 50 MG tab] 50 mg PO Q6HR PRN #20 tablet 09/17/15 Unknown Rx Azithromycin [Zithromax Z-TERRI] 250 mg PO DAILY #6 tablet 03/01/18 Unknown Rx Benzonatate [Tessalon Perle] 100 mg PO Q8H PRN 20 Days capsule 03/01/18 Unknown Rx Prednisone [predniSONE 10 mg 10 mg PO .TAPER #1 tab.ds.pk 03/01/18 Unknown Rx (6-Day Pack, 21 Tabs)] metroNIDAZOLE [Flagyl] 500 mg PO Q12HR #14 tab 07/15/18 Unknown Rx Ciprofloxacin HCl [Ciprofloxacin 500 mg PO Q12HR #6 tab 10/11/18 Unknown Rx TAB] Ibuprofen 800 mg PO QID PRN #15 tablet 12/01/18 Unknown Rx metroNIDAZOLE [Flagyl] 500 mg PO Q12HR 10 Days #20 tab 04/13/19 Unknown Rx ED Physical Exam - General Limitations: No Limitations General appearance: alert, in no apparent distress - Head Head exam: Present: atraumatic, normocephalic - Eye Eye exam: Present: normal appearance - ENT ENT exam: Present: mucous membranes moist - Respiratory Respiratory exam: Present: normal lung sounds bilaterally. Absent: respiratory distress, wheezes, rales, rhonchi, stridor, chest wall tenderness, accessory muscle use, decreased breath sounds, prolonged expiratory - Cardiovascular Cardiovascular Exam: Present: regular rate, normal rhythm, normal heart sounds. Absent: systolic murmur, diastolic murmur, rubs, gallop - GI/Abdominal GI/Abdominal exam: Present: soft, tenderness (mild left lower suprapubic ), normal bowel sounds. Absent: distended, guarding, rebound, rigid - Neurological Exam Neurological exam: Present: alert, oriented X3 - Psychiatric Psychiatric exam: Present: normal affect, normal mood - Skin Skin exam: Present: warm, dry, intact ED Course Vital Signs 05/01/19 19:32 Temperature 98.6 F Pulse Rate 72 Respiratory 18 Rate Blood Pressure 101/74 O2 Sat by Pulse 100 Oximetry ED Medical Decision Making - Radiology Data Radiology results: report reviewed ULTRASOUND PELVIS INDICATION / CLINICAL INFORMATION: left suprapubic pain, hx of ovarian cyst. TECHNIQUE: Transabdominal and Transvaginal. Duplex Color Doppler used: Yes. COMPARISON: None available FINDINGS: UTERUS: Present. - Appearance (if present): No significant abnormality. - Size in cm (if present): 7.2 x 3.8 x 4.9. - Endometrial Complex (if present): Thin. An IUD is appropriately positioned in the endometrial cavity. - Mass lesions: None. - Additional findings: None. RIGHT ADNEXA: 0.7 cm diameter hyperechoic cystic lesion, likely a hemorrhagic follicular cyst. Normal color Doppler blood flow. LEFT ADNEXA: No significant ovarian cyst or mass. Normal color Doppler blood flow. URINARY BLADDER: No significant abnormality. FREE FLUID: None. ADDITIONAL FINDINGS: None. IMPRESSION: 1. No significant abnormality. Signer Name: Troy Atkins MD Signed: 05/01/2019 9:41 PM Workstation Name: [id number] - Medical Decision Making Patient is a 34-year-old female presents to the emergency room with complaints of pain to her left lower abdomen that began 3 days ago. She states she has having "ovary pain." She has a past medical history of ovarian cyst. She denies any nausea, vomiting, fever, dysuria, vaginal bleeding. The patient states she also has urinary frequency. pt does not report vaginal discharge or vaginal complaints. 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 Denies any allergies to medications. vitals are normal. UA without evidence of UTI. on exam: mild left lower suprapubic. pelvic US obtained and shows:0.7 cm diameter hyperechoic cystic lesion, likely a hemorrhagic follicular cyst. Normal color Doppler blood flow. otherwise no acute abnormality. advised pt to please follow up with an [employer]ER SET UP OPERATOR in the next 2-3 days. Listed several below. Take Tylenol or ibuprofen for any discomfort. Return to the emergency room for any new or worsening symptoms. - Differential Diagnosis ovarian cyst, UTI Critical care attestation.: If time is entered above; I have spent that time in minutes in the direct care of this critically ill patient, excluding procedure time. ED Disposition Clinical Impression: Suprapubic pain Ovarian cyst Qualifiers: Laterality: right Qualified Code(s): N83.201 - Unspecified ovarian cyst, right side Disposition: TO HOME OR SELFCARE Is pt being admited?: No Does the pt Need Aspirin: No Condition: Stable Instructions: Ovarian Cyst (ED) Additional Instructions: Please follow up with an ROTARY PL[employer]ER SET UP OPERATOR in the next 2-3 days. Listed several below. Take Tylenol or ibuprofen for any discomfort. Return to the emergency room for any new or worsening symptoms. Referrals: [facility] [Provider Group] - 2-3 Days [facility] [Provider Group] - 2-3 Days [facility] [Outside] - 2-3 Days [facility] [Provider Group] - 2-3 Days [facility] [Provider Group] - 2-3 Days Time of Disposition: 21:51 Print Language: FAROESE
[2019-05-01 21:25] LABS: HCG Qualitative,Urine Negative (Negative)
--- NOTE | 2019-05-01 21:45 | Ultrasound Report ---
ULTRASOUND PELVIS INDICATION / CLINICAL INFORMATION: left suprapubic pain, hx of ovarian cyst. TECHNIQUE: Transabdominal and Transvaginal. Duplex Color Doppler used: Yes. COMPARISON: None available FINDINGS: UTERUS: Present. - Appearance (if present): No significant abnormality. - Size in cm (if present): 7.2 x 3.8 x 4.9. - Endometrial Complex (if present): Thin. An IUD is appropriately positioned in the endometrial cavit y. - Mass lesions: None. - Additional findings: None. RIGHT ADNEXA: 0.7 cm diameter hyperechoic cystic lesion, likely a hemorrhagic follicular cyst. Normal color Doppler blood flow. LEFT ADNEXA: No significant ovarian cyst or mass. Normal color Doppler blood flow. URINARY BLADDER: No significant abnormality. FREE FLUID: None. ADDITIONAL FINDINGS: None. IMPRESSION: 1. No significant abnormality. Signer Name: Troy Atkins MD Signed: 05/01/2019 9:41 PM Workstation Name: [id number]
== END 2019-05-01 22:37 | disposition home or self-care (01) ==
LOC: ED 19:02
DX: N83.201 Unspecified ovarian cyst, right side (principal); F12.10 Cannabis abuse, uncomplicated; Z79.899 Other long term (current) drug therapy
CPT/HCPCS: 76830; 76856; 81001; 81025

== ENCOUNTER 2019-12-09 15:15 | Emergency (ER) | payer MEDICAID, OTHER ==
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
[2019-12-09 18:30] VITALS: BP 140/84
== END 2019-12-09 18:29 | disposition home or self-care (01) ==
LOC: ED 15:15
DX: M54.9 Dorsalgia, unspecified (principal); F12.10 Cannabis abuse, uncomplicated; Z98.890 Other specified postprocedural states; Z79.1 Long term (current) use of non-steroidal anti-inflammatories (NSAID); Z79.2 Long term (current) use of antibiotics; Z79.899 Other long term (current) drug therapy; V49.69XA Unspecified car occupant injured in collision with other motor vehicles in traffic accident, initial encounter; Y93.89 Activity, other specified; Y92.410 Unspecified street and highway as the place of occurrence of the external cause; Y99.8 Other external cause status
CPT/HCPCS: 72100

== ENCOUNTER 2021-08-16 11:18 | Emergency (ER) | payer MEDICAID ==
[2021-08-16 11:24] VITALS: BP 119/75
--- NOTE | 2021-08-16 11:40 | Emergency Department Report ---
ED ENT HPI - General Chief complaint: Dental/Oral Stated complaint: BUMPS ON GUMS Time Seen by Provider: 08/16/21 11:27 Source: patient Mode of arrival: Ambulatory Limitations: No Limitations - History of Present Illness Initial comments: 36 year old female presents to ED with complaints of bumps to gum in right upper jaw. She states she noticed them yesterday. She states they are mildly sore especially when touch but no significantly painful. She states when she brushes her teeth, the area bleeds. She denies dental pain. She denies any known injury. She reports no additional symptoms at this time. MD complaint: other (bumps on gum) -: Gradual, days(s) (1) - Related Data Previous Rx's Medication Instructions Recorded Last Taken Type Sulfamethoxazole/Trimethoprim 1 each PO Q12H #20 tablet 09/17/15 Unknown Rx [Bactrim DS TAB] metroNIDAZOLE [Flagyl] 500 mg PO Q12HR #14 tab 09/17/15 Unknown Rx traMADoL [Ultram 50 MG tab] 50 mg PO Q6HR PRN #20 tablet 09/17/15 Unknown Rx Azithromycin [Zithromax Z-TERRI] 250 mg PO DAILY #6 tablet 03/01/18 Unknown Rx Benzonatate [Tessalon Perle] 100 mg PO Q8H PRN 20 Days capsule 03/01/18 Unknown Rx Prednisone [predniSONE 10 mg 10 mg PO .TAPER #1 tab.ds.pk 03/01/18 Unknown Rx (6-Day Pack, 21 Tabs)] metroNIDAZOLE [Flagyl] 500 mg PO Q12HR #14 tab 07/15/18 Unknown Rx Ciprofloxacin HCl [Ciprofloxacin 500 mg PO Q12HR #6 tab 10/11/18 Unknown Rx TAB] Ibuprofen 800 mg PO QID PRN #15 tablet 12/01/18 Unknown Rx metroNIDAZOLE [Flagyl] 500 mg PO Q12HR 10 Days #20 tab 04/13/19 Unknown Rx Ketorolac [Toradol] 10 mg PO Q6H PRN #20 tablet 12/09/19 Unknown Rx methOCARBAMOL [Robaxin TAB] 500 mg PO Q6H #20 tablet 12/09/19 Unknown Rx Allergies Allergy/AdvReac Type Severity Reaction Status Date / Time No Known Allergies Allergy Verified 08/16/21 11:19 ED Dental HPI - General Chief complaint: Dental/Oral Stated complaint: BUMPS ON GUMS Time Seen by Provider: 08/16/21 11:27 Source: patient Mode of arrival: Ambulatory Limitations: No Limitations - Related Data Previous Rx's Medication Instructions Recorded Last Taken Type Sulfamethoxazole/Trimethoprim 1 each PO Q12H #20 tablet 09/17/15 Unknown Rx [Bactrim DS TAB] metroNIDAZOLE [Flagyl] 500 mg PO Q12HR #14 tab 09/17/15 Unknown Rx traMADoL [Ultram 50 MG tab] 50 mg PO Q6HR PRN #20 tablet 09/17/15 Unknown Rx Azithromycin [Zithromax Z-TERRI] 250 mg PO DAILY #6 tablet 03/01/18 Unknown Rx Benzonatate [Tessalon Perle] 100 mg PO Q8H PRN 20 Days capsule 03/01/18 Unknown Rx Prednisone [predniSONE 10 mg 10 mg PO .TAPER #1 tab.ds.pk 03/01/18 Unknown Rx (6-Day Pack, 21 Tabs)] metroNIDAZOLE [Flagyl] 500 mg PO Q12HR #14 tab 07/15/18 Unknown Rx Ciprofloxacin HCl [Ciprofloxacin 500 mg PO Q12HR #6 tab 10/11/18 Unknown Rx TAB] Ibuprofen 800 mg PO QID PRN #15 tablet 12/01/18 Unknown Rx metroNIDAZOLE [Flagyl] 500 mg PO Q12HR 10 Days #20 tab 04/13/19 Unknown Rx Ketorolac [Toradol] 10 mg PO Q6H PRN #20 tablet 12/09/19 Unknown Rx methOCARBAMOL [Robaxin TAB] 500 mg PO Q6H #20 tablet 12/09/19 Unknown Rx Allergies Allergy/AdvReac Type Severity Reaction Status Date / Time No Known Allergies Allergy Verified 08/16/21 11:19 ED Review of Systems ROS: Stated complaint: BUMPS ON GUMS Other details as noted in HPI Comment: All other systems reviewed and negative Eyes: denies: eye pain, eye discharge, vision change ENT: denies: ear pain, throat pain, dental pain, hearing loss, epistaxis, congestion Cardiovascular: denies: chest pain, palpitations, dyspnea on exertion, edema, syncope, paroxysmal nocturnal dyspnea Gastrointestinal: denies: abdominal pain, nausea, diarrhea Genitourinary: denies: urgency, dysuria, frequency, hematuria, discharge, abnormal menses, dyspareunia Musculoskeletal: denies: back pain, joint swelling, arthralgia Skin: rash Neurological: denies: headache, weakness, paresthesias Psychiatric: denies: anxiety, depression, auditory hallucinations, visual hallucinations, homicidal thoughts, suicidal thoughts Hematological/Lymphatic: denies: easy bleeding, easy bruising, swollen glands ED Past Medical Hx - Past Medical History Previous Medical History?: No - Surgical History Past Surgical History?: Yes Additional Surgical History: c-sectionx3. D&C. x1, 11/26/2017 - Social History Smoking Status: Never Smoker Substance Use Type: Marijuana - Medications Home Medications: Home Medications Medication Instructions Recorded Confirmed Last Taken Type Sulfamethoxazole/Trimethoprim 1 each PO Q12H #20 tablet 09/17/15 Unknown Rx [Bactrim DS TAB] metroNIDAZOLE [Flagyl] 500 mg PO Q12HR #14 tab 09/17/15 Unknown Rx traMADoL [Ultram 50 MG tab] 50 mg PO Q6HR PRN #20 tablet 09/17/15 Unknown Rx Azithromycin [Zithromax Z-TERRI] 250 mg PO DAILY #6 tablet 03/01/18 Unknown Rx Benzonatate [Tessalon Perle] 100 mg PO Q8H PRN 20 Days capsule 03/01/18 Unknown Rx Prednisone [predniSONE 10 mg 10 mg PO .TAPER #1 tab.ds.pk 03/01/18 Unknown Rx (6-Day Pack, 21 Tabs)] metroNIDAZOLE [Flagyl] 500 mg PO Q12HR #14 tab 07/15/18 Unknown Rx Ciprofloxacin HCl [Ciprofloxacin 500 mg PO Q12HR #6 tab 10/11/18 Unknown Rx TAB] Ibuprofen 800 mg PO QID PRN #15 tablet 12/01/18 Unknown Rx metroNIDAZOLE [Flagyl] 500 mg PO Q12HR 10 Days #20 tab 04/13/19 Unknown Rx Ketorolac [Toradol] 10 mg PO Q6H PRN #20 tablet 12/09/19 Unknown Rx methOCARBAMOL [Robaxin TAB] 500 mg PO Q6H #20 tablet 12/09/19 Unknown Rx ED Physical Exam - General Limitations: No Limitations General appearance: alert, in no apparent distress - Head Head exam: Present: atraumatic, normocephalic, normal inspection - Eye Eye exam: Present: normal appearance, PERRL, EOMI Pupils: Present: normal accommodation - ENT ENT exam: Present: normal exam, mucous membranes moist, TM's normal bilaterally - Expanded ENT Exam Expanded 1 - Other (very tiny vesicular appearing bumps noted to gum; when touch the skin easily slothes off with underlying very superifical ulcerations noted; no swelling, no tender; no abscess) ED Course Vital Signs 08/16/21 11:23 Temperature 98.5 F Pulse Rate 60 Respiratory 15 Rate Blood Pressure 119/75 O2 Sat by Pulse 100 Oximetry Critical care attestation.: If time is entered above; I have spent that time in minutes in the direct care of this critically ill patient, excluding procedure time. ED Disposition Clinical Impression: Canker sores oral Disposition: 01 HOME / SELF CARE / HOMELESS Is pt being admited?: No Does the pt Need Aspirin: No Condition: Stable Instructions: Canker Sores Additional Instructions: You can use over the counter ora gel, tylenol and motrin as needed for pain. I recommend soft foods and liquids. Do a non alcoholic base mouth wash. Try avoid any aggressive brushing of her teeth. Follow up with PCP as needed. Return to ED if worse. Referrals: RENÉ MCMANUS MD [Staff Physician] - 3-5 Days Time of Disposition: 11:43
== END 2021-08-16 11:49 | disposition home or self-care (01) ==
LOC: ED 11:18
DX: K03.81 Cracked tooth (principal); F12.90 Cannabis use, unspecified, uncomplicated
CPT/HCPCS: 99282

== ENCOUNTER 2022-05-25 11:21 | Emergency (ER) | payer MEDICAID ==
--- NOTE | 2022-05-25 11:56 | Emergency Department Report ---
Blank Doc - Documentation Documentation: 37-year-old female that presents with left pelvic pain. Stated is about 6 weeks . 1- This is a initial triage assessment/medical screening only. Full assessment and work-up will be completed once the patient is in proper hospital gown, ED bed and in a private room setting. This initial assessment/diagnostic orders/clinical plan/ treatment(s) is/are subject to change based on pt's health status, clinical progression and re-assessment by fellow clinical providers in the ED. Further treatment and workup at subsequent clinical providers discretion. Patient/guardians urged not to elope from ED as their condition may be serious if not clinically assessed and managed. 2-labs 3-UA 4-US OB The patient was evaluated in the emergency department for symptoms described in the history of present illness. He/she was evaluated in the context of the global COVID-19 pandemic, which necessitated consideration that the patient might be at risk for infection with the virus that causes COVID-19. Institutional protocols and algorithms that pertain to the evaluation of patients at risk for COVID-19 are in a state of rapid change based on information released by regulatory bodies including the CDC and federal and state organizations. These policies and algorithms were followed during the patient's care in the emergency department. Please note that these policies, procedures and recommendations changed on a rapid basis.
[2022-05-25 12:50] LABS: WBC,Urine < 1.0 /HPF (0.0-6.0)
[2022-05-25 13:04] LABS: Color,Urine Straw (Yellow)
--- NOTE | 2022-05-25 13:07 | Ultrasound Report ---
ULTRASOUND OBSTETRIC INDICATION: pelvic pain. TECHNIQUE: Transabdominal and Transvaginal. COMPARISON: Pelvic ultrasound performed on 05/01/2019. FINDINGS: GESTATIONAL SAC: Well-defined oval shape and intrauterine in location. YOLK SAC: No significant abnormality. EMBRYO/FETUS: No significant abnormality. - Toppers-Rump Length = 0.2 cm = 5 weeks, 5 day(s). - Heart Rate = 178 beats per minute. ADNEXA: A corpus luteum cyst in the right ovary measures 3.2 x 3.1 x 2.8 cm. No other significant abn ormality. FREE FLUID: A small amount of free fluid is seen adjacent to the right ovary. ADDITIONAL FINDINGS: There is a nonspecific ovoid hyperechoic structure located adjacent to the gesta tional sac measuring 7.9 x 7.2 x 6.5 mm. IMPRESSION: 1. Single, living intrauterine with estimated sonographic age of 5 weeks, 5 day(s). 2. Nonspecific subcentimeter hyperechoic structure adjacent to the gestational sac could represent an area of subchorionic hemorrhage. Continued close clinical and imaging follow-up is recommended. Signer Name: Hayden Quinn MD Signed: 05/25/2022 1:03 PM Workstation Name: [id number]
[2022-05-25 13:50] LABS: Basophils # (Auto) 0.2 K/mm3 (0.0-0.1); Basophils % (Auto) 2.5 % (0.0-1.8); Eosinophils # (Auto) 0.2 K/mm3 (0.0-0.4); Eosinophils % (Auto) 2.1 % (0.0-4.3); Hemoglobin 12.1 gm/dl (10.1-14.3); Lymphocytes # (Auto) 1.4 K/mm3 (1.2-5.4); Mean Corpuscular HGB Conc 33 % (30-34); Mean Corpuscular Volume 97 fl (79-97); Monocytes # (Auto) 0.4 K/mm3 (0.0-0.8); Monocytes % (Auto) 5.2 % (0.0-7.3); Platelet Count 279 K/mm3 (140-440); Red Blood Count 3.81 M/mm3 (3.65-5.03); Red Cell Distribution Width 13.5 % (13.2-15.2)
[2022-05-25 13:58] LABS: INR 0.93 (0.87-1.13)
[2022-05-25 13:59] LABS: Partial Thromboplastin Time 28.6 Sec. (24.2-36.6)
--- NOTE | 2022-05-25 15:35 | Emergency Department Report ---
ED General Adult HPI - General Chief complaint: Abdominal Pain Stated complaint: 6WKS LOWER STOMACH PAIN Time Seen by Provider: 05/25/22 11:53 Source: patient Mode of arrival: Ambulatory Limitations: No Limitations - History of Present Illness Initial comments: 37-year-old female with no significant past medical history reports to the ER with lower suprapubic abdominal pain x3 days with no vaginal bleeding with no nausea no vomiting no diarrhea. Patient reports she is 6 weeks . Patient is a G2, P4. Patient report her pain is 6 out of 10. Patient reports no other acute signs or symptoms at this time. Severity scale (0 -10): 4 - Related Data Previous Rx's Medication Instructions Recorded Last Taken Type Sulfamethoxazole/Trimethoprim 1 each PO Q12H #20 tablet 09/17/15 Unknown Rx [Bactrim DS TAB] metroNIDAZOLE [Flagyl] 500 mg PO Q12HR #14 tab 09/17/15 Unknown Rx traMADoL [Ultram 50 MG tab] 50 mg PO Q6HR PRN #20 tablet 09/17/15 Unknown Rx Azithromycin [Zithromax Z-TERRI] 250 mg PO DAILY #6 tablet 03/01/18 Unknown Rx Benzonatate [Tessalon Perle] 100 mg PO Q8H PRN 20 Days capsule 03/01/18 Unknown Rx Prednisone [predniSONE 10 mg 10 mg PO .TAPER #1 tab.ds.pk 03/01/18 Unknown Rx (6-Day Pack, 21 Tabs)] metroNIDAZOLE [Flagyl] 500 mg PO Q12HR #14 tab 07/15/18 Unknown Rx Ciprofloxacin HCl [Ciprofloxacin 500 mg PO Q12HR #6 tab 10/11/18 Unknown Rx TAB] Ibuprofen 800 mg PO QID PRN #15 tablet 12/01/18 Unknown Rx metroNIDAZOLE [Flagyl] 500 mg PO Q12HR 10 Days #20 tab 04/13/19 Unknown Rx Ketorolac [Toradol] 10 mg PO Q6H PRN #20 tablet 12/09/19 Unknown Rx methOCARBAMOL [Robaxin TAB] 500 mg PO Q6H #20 tablet 12/09/19 Unknown Rx Allergies Allergy/AdvReac Type Severity Reaction Status Date / Time No Known Allergies Allergy Verified 08/16/21 11:19 ED Review of Systems ROS: Stated complaint: 6WKS LOWER STOMACH PAIN Other details as noted in HPI Comment: All other systems reviewed and negative Gastrointestinal: abdominal pain. denies: nausea, vomiting, diarrhea ED Past Medical Hx - Past Medical History Previous Medical History?: No - Surgical History Past Surgical History?: No Additional Surgical History: c-sectionx3. D&C. x1, 11/26/2017 - Social History Smoking Status: Never Smoker Substance Use Type: Marijuana - Medications Home Medications: Home Medications Medication Instructions Recorded Confirmed Last Taken Type Sulfamethoxazole/Trimethoprim 1 each PO Q12H #20 tablet 09/17/15 Unknown Rx [Bactrim DS TAB] metroNIDAZOLE [Flagyl] 500 mg PO Q12HR #14 tab 09/17/15 Unknown Rx traMADoL [Ultram 50 MG tab] 50 mg PO Q6HR PRN #20 tablet 09/17/15 Unknown Rx Azithromycin [Zithromax Z-TERRI] 250 mg PO DAILY #6 tablet 03/01/18 Unknown Rx Benzonatate [Tessalon Perle] 100 mg PO Q8H PRN 20 Days capsule 03/01/18 Unknown Rx Prednisone [predniSONE 10 mg 10 mg PO .TAPER #1 tab.ds.pk 03/01/18 Unknown Rx (6-Day Pack, 21 Tabs)] metroNIDAZOLE [Flagyl] 500 mg PO Q12HR #14 tab 07/15/18 Unknown Rx Ciprofloxacin HCl [Ciprofloxacin 500 mg PO Q12HR #6 tab 10/11/18 Unknown Rx TAB] Ibuprofen 800 mg PO QID PRN #15 tablet 12/01/18 Unknown Rx metroNIDAZOLE [Flagyl] 500 mg PO Q12HR 10 Days #20 tab 04/13/19 Unknown Rx Ketorolac [Toradol] 10 mg PO Q6H PRN #20 tablet 12/09/19 Unknown Rx methOCARBAMOL [Robaxin TAB] 500 mg PO Q6H #20 tablet 12/09/19 Unknown Rx ED Physical Exam - General Limitations: No Limitations General appearance: alert, in no apparent distress - Head Head exam: Present: atraumatic, normocephalic - Eye Eye exam: Present: normal appearance - ENT ENT exam: Present: mucous membranes moist - Neck Neck exam: Present: normal inspection - Respiratory Respiratory exam: Present: normal lung sounds bilaterally. Absent: respiratory distress - Cardiovascular Cardiovascular Exam: Present: regular rate, normal rhythm. Absent: systolic mu rmur, diastolic murmur, rubs, gallop - GI/Abdominal GI/Abdominal exam: Present: soft, tenderness (Suprapubic), normal bowel sounds. Absent: distended, guarding, rebound, rigid - Extremities Exam Extremities exam: Present: normal inspection - Back Exam Back exam: Present: normal inspection - Neurological Exam Neurological exam: Present: alert, oriented X3 - Psychiatric Psychiatric exam: Present: normal affect, normal mood - Skin Skin exam: Present: warm, dry, intact, normal color. Absent: rash ED Course Vital Signs 05/25/22 05/25/22 11:57 16:08 Temperature 98.3 F Pulse Rate 66 66 Respiratory 18 16 Rate Blood Pressure 119/74 102/74 [Left] O2 Sat by Pulse 100 100 Oximetry ED Medical Decision Making - Lab Data Result diagrams: 05/25/22 13:11 - Radiology Data [facility] [address] [id number] Ultrasound Report Signed Patient: PK SEGAL MR #: [id number] : 1985 Acct:[id number] Age/Sex: 37 / F ADM Date: 05/25/22 Loc: ED Attending Dr: Ordering Physician: NOEL HIRSCH NP Date of Service: 05/25/22 Procedure(s): US OB <= 14 weeks fetus Accession Number(s): [id number] cc: NOEL HIRSCH NP ULTRASOUND OBSTETRIC INDICATION: pelvic pain. TECHNIQUE: Transabdominal and Transvaginal. COMPARISON: Pelvic ultrasound performed on 05/01/2019. FINDINGS: GESTATIONAL SAC: Well-defined oval shape and intrauterine in location. YOLK SAC: No significant abnormality. EMBRYO/FETUS: No significant abnormality. - [place]-Rump Length = 0.2 cm = 5 weeks, 5 day(s). - Heart Rate = 178 beats per minute. ADNEXA: A corpus luteum cyst in the right ovary measures 3.2 x 3.1 x 2.8 cm. No other significant abnormality. FREE FLUID: A small amount of free fluid is seen adjacent to the right ovary. ADDITIONAL FINDINGS: There is a nonspecific ovoid hyperechoic structure located adjacent to the gestational sac measuring 7.9 x 7.2 x 6.5 mm. IMPRESSION: 1. Single, living intrauterine with estimated sonographic age of 5 weeks, 5 day(s). 2. Nonspecific subcentimeter hyperechoic structure adjacent to the gestational sac could represent an area of subchorionic hemorrhage. Continued close clinical and imaging follow- up is recommended. Signer Name: Hayden Quinn MD Signed: 05/25/2022 1:03 PM Workstation Name: [id number] Transcribed By: BIRDIE Dictated By: Hayden Quinn MD Electronically Authenticated By: Hayden Quinn MD Signed Date/Time: 05/25/22 1303 DD/ 1259 TD/TT: - Medical Decision Making 37-year-old female with no significant past medical history reports to the ER with lower suprapubic abdominal pain x3 days with no vaginal bleeding with no nausea no vomiting no diarrhea. Patient reports she is 6 weeks . Patient is a G2, P4. Patient report her pain is 6 out of 10. Patient reports no other acute signs or symptoms at this time. On physical exam there is suprapubic tenderness noted. No abdominal distention noted. No other acute abdominal signs noted on physical exam. Labs are unremarkable. UA with no acute infectious process noted. Ultrasound resultsIMPRESSION: 1. Single, living intrauterine with estimated sonographic age of 5 weeks, 5 day(s). 2. Nonspecific subcentimeter hyperechoic structure adjacent to the gestational sac could represent an area of subchorionic hemorrhage. Continued close clinical and imaging follow- up is recommended. Patient has been informed her ultrasound results. Patient informed to not perform any heavy lifting pushing or pulling. To minimize her stress is much as possible. Patient informed to follow her [employer] as soon as possible. Patient informed that if she starts to experience increased abdominal pain vaginal bleeding or discomfort to report back to ER for further evaluation and repeat ultrasound. Patient agrees with plan of care verbalized understanding. No further work-up is needed at this time. Patient is stable for discharge. Vital Signs 05/25/22 05/25/22 11:57 16:08 Temperature 98.3 F Pulse Rate 66 66 Respiratory 18 16 Rate Blood Pressure 119/74 102/74 [Left] O2 Sat by Pulse 100 100 Oximetry Lab Results 05/25/22 05/25/22 05/25/22 Range/Units 12:00 13:11 13:11 WBC 7.6 (4.5-11.0) K/mm3 RBC 3.81 (3.65-5.03) M/mm3 Hgb 12.1 (10.1-14.3) gm/dl Hct 37.0 (30.3-42.9) % MCV 97 (79-97) fl MCH 32 (28-32) pg MCHC 33 (30-34) % RDW 13.5 (13.2-15.2) % Plt Count 279 (140-440) K/mm3 Lymph % (Auto) 18.0 (13.4-35.0) % [place] % (Auto) 5.2 (0.0-7.3) % Eos % (Auto) 2.1 (0.0-4.3) % Baso % (Auto) 2.5 H (0.0-1.8) % Lymph # (Auto) 1.4 (1.2-5.4) K/mm3 [place] # (Auto) 0.4 (0.0-0.8) K/mm3 Eos # (Auto) 0.2 (0.0-0.4) K/mm3 Baso # (Auto) 0.2 H (0.0-0.1) K/mm3 Seg Neutrophils % 72.2 H (40.0-70.0) % Seg Neutrophils # 5.5 (1.8-7.7) K/mm3 PT 13.5 (12.2-14.9) Sec. INR 0.93 (0.87-1.13) APTT 28.6 (24.2-36.6) Sec. HCG, Quant (0-4) mIU/mL Urine Color Straw (Yellow) Urine Turbidity Clear (Clear) Specific [place] (Man) 1.010 (1.003-1.030) Ur Protein (Man) <30 mg dl (Negative) mg/dL Ur Ketones (Man) Negative (Negative) Ur Nitrite (Man) Negative (Negative) Ur Reducing Substances Not Reportable Urine Bilirubin (Man) Negative (Negative) Urine Ictotest Not Reportable Leukocyte Esterase (Man) Negative (Negative) Urine WBC (Auto) < 1.0 (0.0-6.0) /HPF Urine RBC (Auto) 1.0 (0.0-6.0) /HPF U Epithel Cells (Auto) 1.0 (0-13.0) /HPF Urine RBC (Manual) Negative (Negative) Blood Type 05/25/22 05/25/22 Range/Units 13:11 Unknown WBC (4.5-11.0) K/mm3 RBC (3.65-5.03) M/mm3 Hgb (10.1-14.3) gm/dl Hct (30.3-42.9) % MCV (79-97) fl MCH (28-32) pg MCHC (30-34) % RDW (13.2-15.2) % Plt Count (140-440) K/mm3 Lymph % (Auto) (13.4-35.0) % [place] % (Auto) (0.0-7.3) % Eos % (Auto) (0.0-4.3) % Baso % (Auto) (0.0-1.8) % Lymph # (Auto) (1.2-5.4) K/mm3 [place] # (Auto) (0.0-0.8) K/mm3 Eos # (Auto) (0.0-0.4) K/mm3 Baso # (Auto) (0.0-0.1) K/mm3 Seg Neutrophils % (40.0-70.0) % Seg Neutrophils # (1.8-7.7) K/mm3 PT (12.2-14.9) Sec. INR (0.87-1.13) APTT (24.2-36.6) Sec. HCG, Quant 01663 H (0-4) mIU/mL Urine Color (Yellow) Urine Turbidity (Clear) Specific [place] (Man) (1.003-1.030) Ur Protein (Man) (Negative) mg/dL Ur Ketones (Man) (Negative) Ur Nitrite (Man) (Negative) Ur Reducing Substances Urine Bilirubin (Man) (Negative) Urine Ictotest Leukocyte Esterase (Man) (Negative) Urine WBC (Auto) (0.0-6.0) /HPF Urine RBC (Auto) (0.0-6.0) /HPF U Epithel Cells (Auto) (0-13.0) /HPF Urine RBC (Manual) (Negative) Blood Type O POSITIVE Critical care attestation.: If time is entered above; I have spent that time in minutes in the direct care of this critically ill patient, excluding procedure time. ED Disposition Clinical Impression: Lower abdominal pain, Threatened miscarriage Disposition: 01 HOME / SELF CARE / HOMELESS Is pt being admited?: No Condition: Stable Instructions: Threatened Miscarriage, Abdominal Pain During , [id number], Vaginal Bleeding During , First Trimester, Abdominal Pain (ED) Referrals: BRUNO PETERSON MD [Staff Physician] - 3-5 Days REBECCA GAMINO MD [Staff Physician] - 3-5 Days Forms: Work/School Release Form(ED)
[2022-05-25 16:10] VITALS: BP 102/74
--- NOTE | 2022-05-26 08:23 | Ultrasound Report ---
OB Ultrasound HISTORY: pelvic pain. TECHNIQUE: Grayscale and color imaging performed. COMPARISON: OB ultrasound from earlier the same day FINDINGS: Transvaginal exam was performed. Uterus measures 8.4 x 5.4 x 5.7 cm. There is an intraute rine gestational sac with crown-rump length measuring 2 mm which corresponds with an EGA of 5 weeks a nd 5 days. cardiac activity is present with heart rate of 178 bpm. A tiny yolk sac is also pres ent. As discussed on the previous exam there is a rounded hyperechoic structure adjacent to the gesta tional sac measuring 8 mm in maximal dimension. Right ovary contains a probable functional cyst measuring roughly 3 cm in maximal dimension, likely a corpus luteal cyst. Right ovary otherwise appears unremarkable. Left ovary contains a few tiny folli cles. Preserved blood flow. Small amount of pelvic free fluid is present. IMPRESSION: 1. Single viable intrauterine gestation as above. 2. Right-sided probable corpus luteal cyst. Small amount of pelvic free fluid. Signer Name: Rashaad Reyna MD Signed: 05/26/2022 8:18 AM Workstation Name: [id number]
== END 2022-05-25 16:09 | disposition home or self-care (01) ==
LOC: ED 11:21
DX: O20.0 Threatened abortion (principal); R10.30 Lower abdominal pain, unspecified; Z3A.01 Less than 8 weeks gestation of pregnancy
CPT/HCPCS: 36415; 76801; 76817; 81001; 84702; 85025; 85610; 85730; 86900; 86901; 99284